=== PATIENT | female | born 2000 ===

== ENCOUNTER 2021-05-15 17:40 | Emergency (ER) | payer MEDICAID ==
[~2021-05-15 17:40] MED LIST: PYRIDOXINE 50 MG TAB PO ONE
[2021-05-15] MEDS ORDERED: diphenhydrAMINE 50 MG/ML VIAL IV STA (21:17)
[2021-05-15] MEDS ORDERED: SODIUM CHLORIDE 0.9% 1000 ML 1,000 ML IV ONE (21:17)
[2021-05-15] MEDS ORDERED: METOCLOPRAMIDE 10 MG/2 ML INJ IV STA (21:17)
[2021-05-15 21:20] VITALS: BP 129/75
[2021-05-15 22:50] LABS: Alanine Aminotransferase 6 units/L (7-56); Albumin 3.4 g/dL (3.9-5); Blood Urea Nitrogen 7 mg/dL (7-17); Hemolysis Index 0
[2021-05-15 23:04] LABS: Basophils % (Auto) 0.5 % (0.0-1.8); Eosinophils % (Auto) 0.2 % (0.0-4.3); Hematocrit 32.2 % (30.3-42.9); Hemoglobin 10.2 gm/dl (10.1-14.3); Lymphocytes # (Auto) 1.1 K/mm3 (1.2-5.4); Lymphocytes % (Auto) 14.8 % (13.4-35.0); Mean Corpuscular HGB Conc 32 % (30-34); Mean Corpuscular Volume 74 fl (79-97); Monocytes # (Auto) 0.6 K/mm3 (0.0-0.8); Monocytes % (Auto) 8.1 % (0.0-7.3); Platelet Count 247 K/mm3 (140-440); Red Blood Count 4.34 M/mm3 (3.65-5.03); Red Cell Distribution Width 18.3 % (13.2-15.2)
--- NOTE | 2021-05-15 23:04 | Emergency Department Report ---
ED N/V/D HPI - General Chief complaint: Nausea/Vomiting/Diarrhea Stated complaint: HYPEREMESIS Time Seen by Provider: 05/15/21 21:17 Source: patient Mode of arrival: Ambulatory Limitations: No Limitations - History of Present Illness Initial comments: 20-year-old female presents emerged from complaining nausea and vomiting sensation in the morning and occasional for the course of the day which worsens with eating and drinking fluids. No diarrhea no constipation, no fever, chills, sweats. No hemoptysis no hematemesis no hematochezia. No known contact with coronavirus reports she has taken a COVID test yesterday and it was negative. She reports no myalgias MD complaint: nausea, vomiting -: Gradual, days(s) (3) Time: 03:00 Description of Vomiting: food contents Associated Abdominal Pain: No Location: diffuse Radiation: none Severity: mild Consistency: constant Improves with: none Worsens with: none Associated Symptoms: denies other symptoms - Related Data Previous Rx's Medication Instructions Recorded Last Taken Type Doxylamine Succinate/Vit B6 1 each PO BID #30 05/15/21 Unknown Rx [Diclegis Dr 10-10 mg Tablet] Pyridoxine [Vitamin B-6 50MG TAB] 50 mg PO QDAY #30 tablet 05/15/21 Unknown Rx Allergies Allergy/AdvReac Type Severity Reaction Status Date / Time No Known Allergies Allergy Verified 05/15/21 21:19 ED Review of Systems ROS: Stated complaint: HYPEREMESIS Other details as noted in HPI Comment: All other systems reviewed and negative ED Past Medical Hx - Past Medical History Previous Medical History?: No - Surgical History Past Surgical History?: No - Medications Home Medications: Home Medications Medication Instructions Recorded Confirmed Last Taken Type Doxylamine Succinate/Vit B6 1 each PO BID #30 05/15/21 Unknown Rx [Diclegis Dr 10-10 mg Tablet] Pyridoxine [Vitamin B-6 50MG TAB] 50 mg PO QDAY #30 tablet 05/15/21 Unknown Rx ED Physical Exam - General Limitations: No Limitations General appearance: alert, in no apparent distress - Head Head exam: Present: atraumatic, normocephalic - Eye Eye exam: Present: normal appearance - ENT ENT exam: Present: mucous membranes moist - Neck Neck exam: Present: normal inspection - Respiratory Respiratory exam: Present: normal lung sounds bilaterally. Absent: respiratory distress - Cardiovascular Cardiovascular Exam: Present: regular rate, normal rhythm. Absent: systolic murmur, diastolic murmur, rubs, gallop - GI/Abdominal GI/Abdominal exam: Present: soft, normal bowel sounds - Extremities Exam Extremities exam: Present: normal inspection - Back Exam Back exam: Present: normal inspection - Neurological Exam Neurological exam: Present: alert, oriented X3 - Psychiatric Psychiatric exam: Present: normal affect, normal mood - Skin Skin exam: Present: warm, dry, intact, normal color. Absent: rash ED Course Vital Signs 05/15/21 05/15/21 05/15/21 19:34 21:17 21:18 Temperature 99.0 F 99.0 F Pulse Rate 105 H 87 Respiratory 15 18 Rate Blood Pressure 122/73 Blood Pressure 129/75 [Left] O2 Sat by Pulse 85 99 99 Oximetry Critical care attestation.: If time is entered above; I have spent that time in minutes in the direct care of this critically ill patient, excluding procedure time. ED Disposition Clinical Impression: Hyperemesis gravidarum Disposition: HOME / SELF CARE / HOMELESS Is pt being admited?: No Does the pt Need Aspirin: No Condition: Stable Instructions: Hyperemesis Gravidarum, Morning Sickness Prescriptions: Doxylamine Succinate/Vit B6 [Diclegis Dr 10-10 mg Tablet] 1 each PO BID #30 Pyridoxine [Vitamin B-6 50MG TAB] 50 mg PO QDAY #30 tablet Referrals: PRIMARY CARE, [Primary Care Provider] - 3-5 Days [facility] [Provider Group] - 3-5 Days
[2021-05-15 23:09] LABS: BUN/Creatinine Ratio 14
== END 2021-05-15 23:31 | disposition home or self-care (01) ==
LOC: ED 17:40
DX: O21.0 Mild hyperemesis gravidarum (principal); Z3A.00 Weeks of gestation of pregnancy not specified
CPT/HCPCS: 36415; 80053; 83690; 85025; 96361; 96374; 96375; 99283; J1200; J2765; J7030; Q0162

== ENCOUNTER 2021-06-12 13:54 | Outpatient (CLI) | payer MEDICAID ==
[2021-06-12] MEDS ORDERED: LACTATED RINGERS 500 ML IV ONE (14:09)
[2021-06-12 14:19] VITALS: BP 118/64
--- NOTE | 2021-06-12 17:22 | Ultrasound Report ---
ULTRASOUND OBSTETRIC COMPLETE INDICATION / CLINICAL INFORMATION: EFW. Clinical Gestational Age (GA) in weeks, days: 23 weeks 0 days TECHNIQUE: Transabdominal. COMPARISON: None available. FINDINGS: NUMBER: Single PRESENTATION: breech PLACENTA: anterior MATERNAL ADNEXA: No significant abnormality. AMNIOTIC FLUID VOLUME: normal AMNIOTIC FLUID INDEX (REGI) in cm (if measured): 21.0 MEASUREMENTS: - Biparietal Diameter = 5.3 cm = 22 weeks 0 days - Head Circumference = 20.6 cm = 22 weeks 5 days - Abdominal Circumference = 17.9 cm = 22 weeks 5 days - Femur Length = 3.7 cm = 21 weeks 5 days - Estimated Weight (in grams, if calculated): 494 - Heart Rate (beats per minute): 143 ADDITIONAL FINDINGS: None. AVERAGE ULTRASOUND AGE (AUA) in weeks, days = 22 weeks 2 days IMPRESSION: 1. Single intrauterine in breech presentation with AUA of 22 weeks 2 days. Estimated weight measures 494 g. 2. No significant sonographic abnormality. Signer Name: Jose Davis MD Signed: 06/12/2021 5:17 PM Workstation Name: [id number]
[2021-06-12 17:48] LABS: Bilirubin,Urine NEG (Negative); Blood,Urine LG (Negative); Color,Urine Yellow (Yellow); Mucus,Urine FEW /HPF; Protein,Urine <15 mg/dL mg/dL (Negative); Urobilinogen,Urine < 2.0 mg/dL (<2.0)
== END 2021-06-12 18:48 | disposition home or self-care (01) ==
LOC: TRG 13:54 → APU 14:03 → TRG 18:48
PROVIDERS: ATTEND Obstetrics & Gynecology
DX: O42.912 Preterm premature rupture of membranes, unspecified as to length of time between rupture and onset of labor, second trimester (principal); O32.1XX0 Maternal care for breech presentation, not applicable or unspecified; Z3A.23 23 weeks gestation of pregnancy
CPT/HCPCS: 36415; 59025; 76816; 81001; 84112; 96360

== ENCOUNTER 2021-09-26 17:04 | Outpatient (CLI) | payer MEDICAID ==
[2021-09-26 19:02] LABS: Bilirubin,Urine NEG (Negative); Blood,Urine LG (Negative); Color,Urine Red (Yellow); Mucus,Urine FEW /HPF; Urobilinogen,Urine < 2.0 mg/dL (<2.0)
[2021-09-26 19:21] VITALS: BP 99/58
--- NOTE | 2021-09-27 08:05 | Ultrasound Report ---
ULTRASOUND OBSTETRIC LIMITED ULTRASOUND BIOPHYSICAL PROFILE INDICATION / CLINICAL INFORMATION: DECREASED MOVEMENT - BPP AND FULL REGI. COMPARISON: None available. FINDINGS: BREATHING MOVEMENT = 2 GROSS BODY MOVEMENT = 2 TONE = 2 QUALITATIVE AMNIOTIC FLUID VOLUME = 2 TOTAL BIOPHYSICAL SCORE = 8/8 HEART RATE (beats per minute): 147 AMNIOTIC FLUID INDEX (cm) = 8.0 (normal = 7-24 cm) PRESENTATION: Cephalic. ADDITIONAL FINDINGS: None. IMPRESSION: 1. Biophysical Score = 8/8 Signer Name: Haider Herr MD Signed: 09/26/2021 7:19 PM Workstation Name: [id number]
== END 2021-09-26 19:24 | disposition home or self-care (01) ==
LOC: TRG 17:04 → APU 17:06 → TRG 19:24
PROVIDERS: ATTEND Obstetrics & Gynecology
DX: Z34.93 Encounter for supervision of normal pregnancy, unspecified, third trimester (principal); Z3A.38 38 weeks gestation of pregnancy
CPT/HCPCS: 76815; 76819; 81001; 87086

== ENCOUNTER 2021-10-05 20:35 | Outpatient (CLI) | payer BC, MEDICAID ==
[2021-10-05] MEDS ORDERED: ACETAMINOPHEN 500 MG TAB PO ONE (21:46)
[2021-10-05 23:12] VITALS: BP 111/56
--- NOTE | 2021-10-06 00:20 | Ultrasound Report ---
ULTRASOUND BIOPHYSICAL PROFILE INDICATION: well being. COMPARISON: 09/26/2021 FINDINGS: BREATHING MOVEMENT = 2 GROSS BODY MOVEMENT = 2 TONE = 2 QUALITATIVE AMNIOTIC FLUID VOLUME = 2 TOTAL BIOPHYSICAL SCORE = 12/09 AMNIOTIC FLUID INDEX (cm) = largest pocket 2.8 cm. PRESENTATION: Cephalic. HEART RATE (beats per minute): 136 IMPRESSION: 1. biophysical profile = 12/09 Signer Name: Abhijit Mccollum MD Signed: 10/06/2021 12:16 AM Workstation Name: [id number]
== END 2021-10-06 00:19 | disposition home or self-care (01) ==
LOC: TRG 20:35 → APU 20:36 → TRG 10-06 00:19
PROVIDERS: ATTEND Obstetrics & Gynecology
DX: O46.8X3 Other antepartum hemorrhage, third trimester (principal); Z3A.39 39 weeks gestation of pregnancy
CPT/HCPCS: 59025; 76819

== ENCOUNTER 2021-10-08 17:49 | Observation (INO) | payer MEDICAID ==
[2021-10-08 21:32] LABS: Hemoglobin 11.7 gm/dl (10.1-14.3); Mean Corpuscular HGB Conc 34 % (30-34); Mean Corpuscular Volume 80 fl (79-97); Platelet Count 196 K/mm3 (140-440); Red Blood Count 4.38 M/mm3 (3.65-5.03); Red Cell Distribution Width 16.6 % (13.2-15.2)
[2021-10-08 21:38] LABS: Bacteria,Urine 1+ /HPF (Negative); Bilirubin,Urine NEG (Negative); Blood,Urine LG (Negative); Color,Urine Yellow (Yellow); Mucus,Urine 1+ /HPF; Protein,Urine <15 mg/dL mg/dL (Negative); Urobilinogen,Urine < 2.0 mg/dL (<2.0)
[2021-10-08 21:39] LABS: Alanine Aminotransferase 10 units/L (7-56); Uric Acid 5.1 mg/dL (3.5-7.6)
[2021-10-08 21:40] LABS: Creatinine,Urine 84.4 mg/dL (0.1-20.0); Protein/Creatinine Ratio,Urine 0.23
[2021-10-08 21:43] LABS: RBC,Urine > 182.0 /HPF (0.0-6.0)
--- NOTE | 2021-10-08 21:43 | Ultrasound Report ---
ULTRASOUND ABDOMEN, LIMITED (RIGHT UPPER QUADRANT) INDICATION / CLINICAL INFORMATION: Right upper quadrant pain. COMPARISON: None available. FINDINGS: PANCREAS: Visualized portion shows no significant abnormality. LIVER: Liver measures 17.6 cm. There is normal hepatopedal flow within the portal vein. Increased ech ogenicity of the liver. GALLBLADDER: No significant abnormality. BILE DUCTS: No significant abnormality. Common bile duct measures 4 mm. FREE FLUID: None. ADDITIONAL FINDINGS: None. IMPRESSION: 1. Increased echogenicity of the liver suggesting hepatic steatosis. In the setting of this may represent acute fatty liver , correlate clinically. Signer Name: Jaylon Vargas DO Signed: 10/08/2021 9:38 PM Workstation Name: [id number]
--- NOTE | 2021-10-08 21:44 | Ultrasound Report ---
ULTRASOUND OBSTETRIC LIMITED ULTRASOUND BIOPHYSICAL PROFILE INDICATION / CLINICAL INFORMATION: well being. Clinical Gestational Age (GA) in weeks, days: 39, 6 TECHNIQUE: Transabdominal. COMPARISON: 09/26/2021 FINDINGS: BREATHING MOVEMENT = 2 GROSS BODY MOVEMENT = 2 TONE = 2 QUALITATIVE AMNIOTIC FLUID VOLUME = 2 TOTAL BIOPHYSICAL SCORE = 8/8 HEART RATE (beats per minute): 161 AMNIOTIC FLUID INDEX (cm) = 17.2 (normal = 7-24 cm) PRESENTATION: Cephalic. ADDITIONAL FINDINGS: None. IMPRESSION: 1. Biophysical Score = 8/8 Signer Name: Jaylon Vargas DO Signed: 10/08/2021 9:40 PM Workstation Name: [id number]
[2021-10-08 22:35] LABS: Alanine Aminotransferase 10 units/L (7-56); Albumin 3.4 g/dL (3.9-5); Blood Urea Nitrogen 10 mg/dL (7-17); Hemolysis Index 0
[2021-10-08] MEDS ORDERED: LACTATED RINGERS 1,000 ML ONE (22:35)
[2021-10-08 22:37] LABS: BUN/Creatinine Ratio 20
[2021-10-08] MEDS ORDERED: SIMETHICONE 80 MG CHEW TAB PO PRN (22:44)
[2021-10-08] MEDS ORDERED: MAGNESIUM HYDROXIDE (MOM) ORAL LIQD UDC PO PRN (22:44)
[2021-10-08] MEDS ORDERED: diphenhydrAMINE 25 MG CAP PO PRN (22:44)
[2021-10-08] MEDS ORDERED: ALUM-MAG HYDROXIDE-SIMETHICONE 200-200-20MG/5ML ORAL LIQD 30 ML PO PRN (22:44)
[2021-10-08] MEDS ORDERED: ONDANSETRON 4 MG/2 ML INJ IV PRN (22:44)
[2021-10-08] MEDS ORDERED: ACETAMINOPHEN 325 MG TAB PO PRN (22:44)
[2021-10-08] MEDS ORDERED: DOCUSATE SODIUM 100 MG CAP PO PRN (22:44)
[2021-10-08] MEDS ORDERED: LACTATED RINGERS 1,000 ML IV SCH (22:45)
--- NOTE | 2021-10-08 22:52 | History and Physical Report ---
History of Present Illness Date of examination: 10/08/21 Date of admission: 10/08/2021 Chief complaint: My stomach is hurting under my right rib and my baby is not moving. History of present illness: @ 39.6 weeks presents via self with c/o right-sided epigastric pain. Followed by [facility] this for short interval and choroid cyst plexus. A subsequent scan at [facility] found no INSERT CUTTER. States RUQ pain has worsened since her initial triage visit 5 days ago. Upon further questioning, also endorsing intermittent abdominal tightness that is not painful. Endorsing decreased movement. Denies vaginal bleeding, LOF, chest pain, headaches, blurred vision, and NVD. Last BM today. Adequate hydration (5 12 oz water bottles today). Tolerating regular diet. EDC Confirmation: 10/09/2021 Gestational Age: 39.6 weeks on admission Past History : 3 Term Births: 2 Premature Births: 0 Living Children: 2 Para: 2 Mult. Births: 0 Prev : 0 Aborta: 0 Elect. Ab: 0 Spont. Ab: 0 Ectopics: 0 # 1 Delivery date: 2019 Weeks Gestation: 39 labor: no Delivery type: Hours of labor: 18+ Anesthesia type: epidural Delivery location: [place] [facility] Sex: Male weight: 6-9 Comments: Vacuum delivery too numb from epidural. Had a small degree with repair. # 2 Delivery date: 2020 Weeks Gestation: 39 labor: no Delivery type: Hours of labor: 12 + Anesthesia type: epidural Delivery location: [place] [facility] Sex: Male weight: 7-14 Comments: No complications in or delivery. Past Medical History: Reviewed and updated today: negative Past Surgical History: Reviewed and updated today: negative Family History Summary: MGChapis - Has Family History of Hypertension - Entered On: 04/16/2021 Social History: Patient is single Smoking History: Patient has never smoked. 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 % Sun Exposure: rarely No Dietary Counseling Reason: pn yes Alcohol Use: yes Type: occ Drug Use: no Past Medical History Anesthesia Complications: negative Anemia: negative Autoimmune Disorder: negative Bleeding Disorder: negative Blood Transfusions: negative Breast Disease: negative Diabetes: negative Heart Disease: negative Hypertension: negative Hepatitis/Liver Disease: negative Kidney Disease/UTI: negative Neurologic/Epilepsy/Migraines: negative Phlebitis/Varicosities: negative Psychiatric: negative Pulmonary Disease/Asthma: negative Thyroid Disease: negative Hospitalizations: negative Surgery (Non-skiver hand): negative Abnormal PAP: negative BILLIE Exposure: negative Infertility: negative Uterine Anomaly: negative Uterine Surgery (not C/S): negative Other Gynecologic Problems: negative Social Hx: Patient is single Smoking History: Patient has never smoked. Infection History Hx of STD: none HIV Risk Eval: no Personal hx. of genital herpes: Yes (pt denied at time of new OB visit, however present with lesion in May 2021 and was subsequently diagnosed via serum) Partner hx. of genital herpes: Unknown Rash, Viral, or Febrile illness since last LMP? no Varicella/Chicken Pox Status: Unknown TB Risk: no Genetic History Congenital Heart Defect: Mom: no Dad: no Isadora Disease: Mom: no Dad: no Thalassemia Mom: no Dad: no Neural Tube Defect Mom: no Dad: no Down's Syndrome Mom: no Dad: no Jorge-Sachs Mom: no Dad: no Sickle Cell Disease/Trait Mom: no Dad: no Hemophilia Mom: no Dad: no Muscular Dystrophy Mom: no Dad: no Cystic Fibrosis Mom: no Dad: no Vincent Chorea Mom: no Dad: no Mental Retardation Mom: no Dad: no Fragile X Mom: no Dad: no Other Genetic/Chromosomal Disorder Mom: no Dad: no Child w/other defect Mom: no Dad: no Environmental Exposures Xray Exposure: no Medication, drug, or alcohol use since LMP: no Chemical/Other Exposure: no Exposure to Cat Liter: no Hx of Parvovirus (Fifth Disease): no Occupational Exposure to Children: none Current Allergies (reviewed today): No known allergies Past History Past Medical History: other (history of herpes, initial outbreak May 2021) Past Surgical History: no surgical history Family/Genetic History: hypertension Social history: single - Obstetrical History Expected Date of Delivery: 10/09/21 Actual Gestation: 40 Week(s) 0 Day(s) : 3 Para: 2 Hx # Term Pregnancies: 2 Number of Pregnancies: 0 Spontaneous Abortions: 0 Induced : 0 Number of Living Children: 2 Medications and Allergies Allergies Allergy/AdvReac Type Severity Reaction Status Date / Time No Known Allergies Allergy Verified 05/15/21 21:19 Home Medications Medication Instructions Recorded Confirmed Last Taken Type Doxylamine Succinate/Vit B6 1 each PO BID #30 05/15/21 Unknown Rx [Diclegis Dr 10-10 mg Tablet] Pyridoxine [Vitamin B-6 50MG TAB] 50 mg PO QDAY #30 tablet 05/15/21 Unknown Rx Nitrofurantoin [place]/M-Cryst 100 mg PO Q12HR #10 capsule 06/12/21 Unknown Rx [Macrobid CAP] Active Meds: Active Medications Acetaminophen (Acetaminophen 325 Mg Tab) 650 mg PO Q4H PRN PRN Reason: Pain MILD(1-3)/Fever >100.5/CLEMENS Al Hydrox/Mg Hydrox/Simethicone (Alum-Mag Hydroxide-Simethicone [phone]/5ml Oral Liqd 30 Ml) 30 ml PO Q6H PRN PRN Reason: Indigestion Diphenhydramine HCl (Diphenhydramine 25 Mg Cap) 25 mg PO Q6H PRN PRN Reason: Itching Docusate Sodium (Docusate Sodium 100 Mg Cap) 100 mg PO Q12H PRN PRN Reason: Constipation Lactated Ringer's (Lactated Ringers) 1,000 mls @ 125 mls/hr IV DIRECT CLAUDIA Magnesium Hydroxide (Magnesium Hydroxide (Mom) Oral Liqd Udc) 30 ml PO QHS PRN PRN Reason: Laxative Effect Multivitamins/Iron/Calcium ( Cfb79-Pl Fumarate-Folic Acid Vit Tab) 1 each PO QDAY CLAUDIA Ondansetron HCl (Ondansetron 4 Mg/2 Ml Inj) 4 mg IV Q6H PRN PRN Reason: Nausea And Vomiting Simethicone (Simethicone 80 Mg Chew Tab) 80 mg PO Q6H PRN PRN Reason: Gas pain Review of Systems Constitutional: no chronic headaches, no chronic pain Eyes: no blurred vision Cardiovascular: no chest pain, no orthopnea, no palpitations, no edema, no lightheadedness Breasts: deferred Gastrointestinal: abdominal pain, no nausea, no vomiting, no diarrhea, no constipation, no change in bowel habits, no hematochezia, no heartburn, no indigestion, no excessive gas, no jaundice, no early satiety Genitourinary: no vaginal bleeding, no vaginal discharge, no leakage of fluid, no dysuria, no genital sores Neurological: no headaches, no migraines, no double vision, no loss of vision Endocrine: no polyuria, no excessive sweating, no increase in ring/shoe/hat size Hematologic/Lymphatic: no easy bruising, no easy bleeding - Vital Signs Vital signs: Vital Signs Pulse BP 101 H 120/68 10/08/21 18:26 10/08/21 18:26 Temp Pulse Resp BP Pulse Ox 98.3 F 89 118/62 98 10/08/21 22:38 10/08/21 22:39 10/08/21 22:39 10/08/21 20:32 Pt is alert oriented to person, place, time, and situation. Endorses right upper quadrant pain, but no rebound tenderness on palpation. Palpated patient's abdomen for 3 minutes in the area of pain and this did not elicit a response from the patient. She denies nausea, vomiting, headache, blurred vision, spots before her eyes, chest pain, shortness of breath. - Physical Exam Breasts: Positive: deferred Cardiovascular: Regular rate, Normal S1, Normal S2 Lungs: Positive: Clear to auscultation, Normal air movement Abdomen: Positive: normal appearance, soft, normal bowel sounds. Negative: tenderness, guarding Genitourinary (Female): Positive: normal external genitalia, normal perenium, other (No lesions seen on exam.) Vulva: both: normal Vagina: Positive: other (+ white discharge consistent with yeast) Uterus: Positive: normal size Extremities: Positive: normal Deep Tendon Reflex Grade: Normal +2 - Obstetrical FHR: category 1, category 2 ( tachycardia noted at times during triage admission. ) Uterine Contraction Monitor Mode: External Cervical Dilatation: 3 Cervical Effacement Percentage: 50 station: -3 Uterine Contraction Frequency (min): irritability Uterine Contraction Duration: 30-40 seconds Uterine Contraction Pattern: Regular Uterine Tone Measurement Phase: Resting Uterine Contraction Intensity: Mild Results Result Diagrams: 10/08/21 20:45 10/08/21 20:45 Abnormal lab results 10/08/21 10/08/21 10/08/21 Range/Units 20:45 20:45 20:45 MCH 27 L (28-32) pg RDW 16.6 H (13.2-15.2) % Carbon Dioxide (22-30) mmol/L Creatinine 0.4 L (0.6-1.2) mg/dL Alkaline Phosphatase (35-129) units/L Albumin (3.9-5) g/dL U Epithel Cells (Auto) 24.0 H (0-13.0) /HPF Urine Creatinine (0.1-20.0) mg/dL Urine Total Protein (5-11.8) mg/dL 10/08/21 10/08/21 Range/Units 20:45 20:45 MCH (28-32) pg RDW (13.2-15.2) % Carbon Dioxide 20 L (22-30) mmol/L Creatinine 0.5 L (0.6-1.2) mg/dL Alkaline Phosphatase 200 H (35-129) units/L Albumin 3.4 L (3.9-5) g/dL U Epithel Cells (Auto) (0-13.0) /HPF Urine Creatinine 84.4 H (0.1-20.0) mg/dL Urine Total Protein 19 H (5-11.8) mg/dL GBS NEGATIVE HBsAg Screen Negative Negative *1 RPR Non Reactive Non Reactive *2 Rubella Antibodies, IgG 3.56 index Immune >0.99 *3 Non-immune <0.90 Equivocal 0.90 - 0.99 Immune >0.99 ABO Grouping O *4 Rh Factor Positive *5 Please note: Prior records for this patient's ABO / Rh type are not available for additional verification. Tests: (3) HB Solu + Rflx Fra ([id number]) Hemoglobin (Hgb) Solubility Negative Negative *55 Tests: (4) HIV Ab/p24 Ag with Reflex ([id number]) HIV Ab/p24 Ag Screen Non Reactive Non Reactive *56 HIV Negative HIV-1/HIV-2 antibodies and HIV-1 p24 antigen were NOT detected. There is no laboratory evidence of HIV infection. Tests: (5) HCV Antibody reflex to NORBERT ([id number]) HCV Ab 0.1 s/co ratio 0.0-0.9 *57 Tests: (6) Interpretation: ([id number]) ! Interpretation: SPRCS *58 Negative Not infected with HCV, unless recent infection is suspected or other evidence exists to indicate HCV infection. Ultrasound: report reviewed Assessment and Plan A: 21yo @39.6 weeks SVE: /-3, posterior, soft possible latent labor US: "slight enlargement of liver, consistent with acute liver of , correlate with clinical findings" - Not consistent with subjective exam findings excluding chief complaint. U/S results also not consistent with objective physical exam findings or lab results Lab results WNL, including billirubin, coagulation factors, liver enzymes and platelets BPP: 12/09 Cat 1 / Cat 2 tracing [intermittent tachycardia, moderate variability, 2 decelerations noted >4 hrs) VSS Pt no longer reporting abdominal pain, initially TOCO irritable upon arrival, spaced to irregular contractions Decreased movement P: Admit to observation IVF bolus 1 time PRN order for IV analgesia Repeat labs @0700 on 10/09/21 Repeat SVE Pending labs results and SVE, admit for augmentation of labor Dr Marie consulted and aware of plan of care. - Patient Problems (1) with 39 completed weeks gestation Current Visit: Yes Status: Acute (2) Decreased movement affecting , antepartum Current Visit: Yes Status: Acute (3) HSV-2 infection Current Visit: Yes Status: Acute (4) Right upper quadrant abdominal pain affecting Current Visit: Yes Status: Acute
[2021-10-08 23:23] LABS: INR 0.83 (0.87-1.13)
[2021-10-08 23:24] LABS: Partial Thromboplastin Time 27.8 Sec. (24.2-36.6)
--- NOTE | 2021-10-09 07:19 | Progress Note ---
Assessment and Plan A: 21 y.o. @ 40 wks, hx of right upper quadrant pain, decreased movement. Cervical exam unchanged since observation admission. 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 P: Continue with observation. Continue to monitor maternal and status. Continue to monitor for lesions. Valtrex 1 gm ordered PO daily. Awaiting repeat labs this AM. - If WNL, pt aware that she will be discharged home with close follow up in office. - Patient Problems (1) with 39 completed weeks gestation Current Visit: Yes Status: Acute (2) Decreased movement affecting , antepartum Current Visit: Yes Status: Acute (3) HSV-2 infection Current Visit: Yes Status: Acute (4) Right upper quadrant abdominal pain affecting Current Visit: Yes Status: Acute Subjective - Subjective Date of service: 10/09/21 Principal diagnosis: IUP @ 40 wks, decreased movement, right upper quadrant pain Interval history: Pt continues to deny pain at this time. Spoke with patient regarding plan of care. If labs are normal this AM and she does not have any s/sx of active labor she will be discharged home with close follow up. Pt is aware and voiced understanding. All questions and concerns addressed. Patient reports: movement normal, no new complaints, no loss of fluid, no vaginal bleeding, no contractions Objective - Vital Signs Vital Signs: Vital Signs - 12hr 10/08/21 10/08/21 10/08/21 19:17 19:22 19:27 Temperature Pulse Rate 107 H 104 H 86 Blood Pressure O2 Sat by Pulse 97 97 97 Oximetry 10/08/21 10/08/21 10/08/21 19:32 19:37 19:42 Temperature Pulse Rate 91 H 90 106 H Blood Pressure O2 Sat by Pulse 97 97 95 Oximetry 10/08/21 10/08/21 10/08/21 19:47 19:52 19:57 Temperature Pulse Rate 94 H 100 H 100 H Blood Pressure O2 Sat by Pulse 97 97 97 Oximetry 10/08/21 10/08/21 10/08/21 20:02 20:07 20:12 Temperature Pulse Rate 99 H 109 H 104 H Blood Pressure O2 Sat by Pulse 97 97 97 Oximetry 10/08/21 10/08/21 10/08/21 20:17 20:22 20:26 Temperature Pulse Rate 110 H 106 H 111 H Blood Pressure O2 Sat by Pulse 97 98 93 Oximetry 10/08/21 10/08/21 10/08/21 20:27 20:32 22:06 Temperature Pulse Rate 97 H 87 92 H Blood Pressure 129/85 O2 Sat by Pulse 98 98 Oximetry 10/08/21 10/08/21 10/09/21 22:38 22:39 01:27 Temperature 98.3 F Pulse Rate 89 90 Blood Pressure 118/62 O2 Sat by Pulse 96 Oximetry 10/09/21 10/09/21 10/09/21 01:32 01:37 01:42 Temperature Pulse Rate 80 86 77 Blood Pressure O2 Sat by Pulse 98 96 96 Oximetry 10/09/21 10/09/21 10/09/21 01:47 01:52 01:57 Temperature Pulse Rate 82 86 91 H Blood Pressure O2 Sat by Pulse 96 97 96 Oximetry 10/09/21 10/09/21 10/09/21 02:02 02:07 02:12 Temperature Pulse Rate 102 H 86 80 Blood Pressure O2 Sat by Pulse 96 97 97 Oximetry 10/09/21 10/09/21 10/09/21 02:17 02:22 02:27 Temperature Pulse Rate 90 90 83 Blood Pressure O2 Sat by Pulse 98 97 96 Oximetry 10/09/21 10/09/21 10/09/21 02:32 02:37 02:42 Temperature Pulse Rate 84 82 85 Blood Pressure O2 Sat by Pulse 97 97 97 Oximetry 10/09/21 10/09/21 10/09/21 02:47 02:59 03:04 Temperature Pulse Rate 83 89 90 Blood Pressure O2 Sat by Pulse 97 96 97 Oximetry 10/09/21 10/09/21 10/09/21 03:09 03:14 03:19 Temperature Pulse Rate 77 75 78 Blood Pressure O2 Sat by Pulse 97 94 95 Oximetry 10/09/21 10/09/21 10/09/21 03:24 03:29 03:33 Temperature Pulse Rate 82 79 86 Blood Pressure 104/53 O2 Sat by Pulse 97 97 Oximetry 10/09/21 10/09/21 10/09/21 03:34 03:39 03:44 Temperature Pulse Rate 82 81 71 Blood Pressure O2 Sat by Pulse 96 95 94 Oximetry 10/09/21 10/09/21 10/09/21 03:49 03:51 03:54 Temperature Pulse Rate 81 79 77 Blood Pressure O2 Sat by Pulse 95 94 94 Oximetry 10/09/21 10/09/21 10/09/21 03:57 03:59 04:03 Temperature Pulse Rate 81 81 82 Blood Pressure O2 Sat by Pulse 94 95 94 Oximetry 10/09/21 10/09/21 10/09/21 04:04 04:08 04:09 Temperature Pulse Rate 78 82 82 Blood Pressure O2 Sat by Pulse 95 94 95 Oximetry 10/09/21 10/09/21 10/09/21 04:14 04:19 04:21 Temperature Pulse Rate 80 83 79 Blood Pressure O2 Sat by Pulse 95 95 94 Oximetry 10/09/21 10/09/21 10/09/21 04:24 04:29 04:34 Temperature Pulse Rate 98 H 86 74 Blood Pressure O2 Sat by Pulse 96 97 98 Oximetry 10/09/21 10/09/21 10/09/21 04:39 04:44 04:49 Temperature Pulse Rate 80 79 86 Blood Pressure O2 Sat by Pulse 97 98 97 Oximetry 10/09/21 10/09/21 10/09/21 04:54 04:59 05:04 Temperature Pulse Rate 84 74 77 Blood Pressure O2 Sat by Pulse 97 98 97 Oximetry 10/09/21 10/09/21 10/09/21 05:09 05:14 05:19 Temperature Pulse Rate 78 75 78 Blood Pressure O2 Sat by Pulse 97 98 97 Oximetry 10/09/21 10/09/21 10/09/21 05:24 05:29 05:34 Temperature Pulse Rate 81 78 83 Blood Pressure O2 Sat by Pulse 97 99 97 Oximetry 10/09/21 10/09/21 10/09/21 05:39 05:40 05:44 Temperature Pulse Rate 91 H 100 H 86 Blood Pressure O2 Sat by Pulse 98 86 96 Oximetry 10/09/21 10/09/21 10/09/21 05:49 05:54 05:59 Temperature Pulse Rate 96 H 81 80 Blood Pressure O2 Sat by Pulse 98 96 98 Oximetry 10/09/21 10/09/21 10/09/21 06:04 06:09 06:14 Temperature 98.1 F Pulse Rate 86 74 Blood Pressure O2 Sat by Pulse 96 97 Oximetry 10/09/21 10/09/21 10/09/21 06:18 06:23 06:28 Temperature Pulse Rate 91 H 86 86 Blood Pressure O2 Sat by Pulse 93 98 97 Oximetry 10/09/21 10/09/21 10/09/21 06:39 06:44 06:49 Temperature Pulse Rate 80 81 Blood Pressure O2 Sat by Pulse 100 96 97 Oximetry 10/09/21 10/09/21 10/09/21 06:54 06:59 07:04 Temperature Pulse Rate 88 84 82 Blood Pressure O2 Sat by Pulse 97 98 98 Oximetry 10/09/21 07:09 Temperature Pulse Rate 86 Blood Pressure O2 Sat by Pulse 98 Oximetry - Exam Narrative Exam: Pt continue to deny n/v, vaginal bleeding, LOF, ctxs, CLEMENS, blurred vision, spots before her eyes, chest pain, shortness of breath, and upper abdominal pain. She continues to be alert and oriented to person, place, time, and situation. Cardiovascular: Regular rate Lungs: Normal air movement Abdomen: Present: normal appearance, soft Vulva: both: normal FHR: category 1 Uterine Contraction Monitor Mode: External Cervical Dilatation: 3.5 (Intact, same exam throughout triage stay. Unchanged) Cervical Effacement Percentage: 50 station: -3 Uterine Contraction Pattern: Absent Extremities: normal Deep Tendon Reflex Grade: Normal +2 - Labs Labs: Abnormal Labs 10/08/21 10/08/21 10/08/21 20:45 20:45 20:45 MCH 27 L RDW 16.6 H INR Carbon Dioxide Creatinine 0.4 L Alkaline Phosphatase Albumin U Epithel Cells (Auto) 24.0 H Urine Creatinine Urine Total Protein 10/08/21 10/08/21 10/08/21 20:45 20:45 22:45 MCH RDW INR 0.83 L Carbon Dioxide 20 L Creatinine 0.5 L Alkaline Phosphatase 200 H Albumin 3.4 L U Epithel Cells (Auto) Urine Creatinine 84.4 H Urine Total Protein 19 H Laboratory Results - last 24 hr 10/08/21 10/08/21 10/08/21 20:45 20:45 20:45 WBC 9.1 RBC 4.38 Hgb 11.7 Hct 35.0 MCV 80 MCH 27 L MCHC 34 RDW 16.6 H Plt Count 196 PT INR APTT Sodium Potassium Chloride Carbon Dioxide Anion Gap BUN Creatinine 0.4 L Estimated GFR > 60 BUN/Creatinine Ratio Glucose Uric Acid 5.1 Calcium Total Bilirubin AST 13 ALT 10 Alkaline Phosphatase Lactate Dehydrogenase 161 Total Protein Albumin Albumin/Globulin Ratio Urine Color Yellow Urine Turbidity Slightly-cloudy Urine pH 5.0 Ur Specific [place] 1.015 Urine Protein <15 mg/dl Urine Glucose (UA) Neg Urine Ketones Neg Urine Blood Lg Urine Nitrite Neg Urine Bilirubin Neg Urine Urobilinogen < 2.0 Ur Leukocyte Esterase Tr Urine WBC (Auto) 4.0 Urine RBC (Auto) > 182.0 U Epithel Cells (Auto) 24.0 H Urine Bacteria (Auto) 1+ Urine Mucus 1+ Urine Creatinine Protein/Creatinin Ratio Urine Total Protein Blood Type Antibody Screen 10/08/21 10/08/21 10/08/21 20:45 20:45 20:45 WBC RBC Hgb Hct MCV MCH MCHC RDW Plt Count PT INR APTT Sodium 137 Potassium 3.9 Chloride 105.3 Carbon Dioxide 20 L Anion Gap 16 BUN 10 Creatinine 0.5 L Estimated GFR > 60 BUN/Creatinine Ratio 20 Glucose 79 Uric Acid Calcium 9.0 Total Bilirubin 0.40 AST 13 ALT 10 Alkaline Phosphatase 200 H Lactate Dehydrogenase Total Protein 7.2 Albumin 3.4 L Albumin/Globulin Ratio 0.9 Urine Color Urine Turbidity Urine pH Ur Specific [place] Urine Protein Urine Glucose (UA) Urine Ketones Urine Blood Urine Nitrite Urine Bilirubin Urine Urobilinogen Ur Leukocyte Esterase Urine WBC (Auto) Urine RBC (Auto) U Epithel Cells (Auto) Urine Bacteria (Auto) Urine Mucus Urine Creatinine 84.4 H Protein/Creatinin Ratio 0.23 Urine Total Protein 19 H Blood Type O POSITIVE Antibody Screen Negative 10/08/21 22:45 WBC RBC Hgb Hct MCV MCH MCHC RDW Plt Count PT 12.3 INR 0.83 L APTT 27.8 Sodium Potassium Chloride Carbon Dioxide Anion Gap BUN Creatinine Estimated GFR BUN/Creatinine Ratio Glucose Uric Acid Calcium Total Bilirubin AST ALT Alkaline Phosphatase Lactate Dehydrogenase Total Protein Albumin Albumin/Globulin Ratio Urine Color Urine Turbidity Urine pH Ur Specific [place] Urine Protein Urine Glucose (UA) Urine Ketones Urine Blood Urine Nitrite Urine Bilirubin Urine Urobilinogen Ur Leukocyte Esterase Urine WBC (Auto) Urine RBC (Auto) U Epithel Cells (Auto) Urine Bacteria (Auto) Urine Mucus Urine Creatinine Protein/Creatinin Ratio Urine Total Protein Blood Type Antibody Screen
[2021-10-09 07:20] VITALS: BP 102/66
[2021-10-09 09:35] LABS: Alanine Aminotransferase 9 units/L (7-56); Albumin 3.1 g/dL (3.9-5); Basophils % (Auto) 0.5 % (0.0-1.8); Blood Urea Nitrogen 7 mg/dL (7-17); Calcium 8.6 mg/dL (8.4-10.2); Eosinophils # (Auto) 0.1 K/mm3 (0.0-0.4); Eosinophils % (Auto) 0.7 % (0.0-4.3); Hematocrit 32.6 % (30.3-42.9); Hemolysis Index 11; Lymphocytes # (Auto) 2.6 K/mm3 (1.2-5.4); Lymphocytes % (Auto) 27.3 % (13.4-35.0); Mean Corpuscular HGB Conc 34 % (30-34); Mean Corpuscular Volume 79 fl (79-97); Monocytes # (Auto) 0.5 K/mm3 (0.0-0.8); Monocytes % (Auto) 5.9 % (0.0-7.3); Platelet Count 185 K/mm3 (140-440); Red Blood Count 4.11 M/mm3 (3.65-5.03)
[2021-10-09 09:36] LABS: BUN/Creatinine Ratio 14
[2021-10-09] MEDS ORDERED: valACYclovir 500 MG TAB PO SCH (10:00)
[2021-10-09] MEDS ORDERED: PRENATAL VIT27-FE FUMARATE-FOLIC ACID VIT TAB PO SCH (10:00)
[2021-10-09 10:14] LABS: INR 0.87 (0.87-1.13)
[2021-10-09 10:16] LABS: Partial Thromboplastin Time 28.6 Sec. (24.2-36.6)
--- NOTE | 2021-10-09 13:07 | Discharge Summary ---
Providers - Providers Date of Admission: 10/08/21 22:44 Date of discharge: 10/09/21 Attending physician: MASHA Sears s/w pt via telephone. Orders placed for discharge home. Discharge precautions reviewed with pt and follow up visit encouraged as scheduled. Pt verbalizes understanding. Primary care physician: MASHA TOWNSEND Hospitalization Reason for admission: observation, IUP at term Discharge diagnosis: other (IUP at term) Condition at discharge: Good Disposition: 01 HOME / SELF CARE / HOMELESS Plan - Provider Discharge Summary Activity: routine Diet: routine Instructions: routine Additional instructions: [] Smoking cessation referral if applicable(refer to patient education folder for contact #) [] Refer to [facility] Booklet Call your doctor immediately for: * Fever > 100.5 * vaginal bleeding * Severe persistent headache * Shortness of breath * Reddened, hot, painful area to leg or breast * leaking vaginal fluid suspicious of broken bag of coe * contractions more than 6 times per hour * decreased movements less than 10 in two hours Please attend your scheduled visit tomorrow morning and call [phone] if you have any questions or concerns. Thank you! - Follow up plan Follow up: MASHA TOWNSEND MD [Primary Care Provider] - 7 Days
== END 2021-10-09 13:15 | disposition home or self-care (01) ==
LOC: TRG 17:49 → APU 17:52 → TRG 22:44 → APU 22:44 → LD 10-09 07:57
PROVIDERS: ADMIT Obstetrics & Gynecology; ATTEND Obstetrics & Gynecology
DX: O09.93 Supervision of high risk pregnancy, unspecified, third trimester (principal); O26.893 Other specified pregnancy related conditions, third trimester; R10.13 Epigastric pain; Z3A.39 39 weeks gestation of pregnancy
CPT/HCPCS: 36415; 59025; 76705; 76815; 76819; 80053; 81001; 82565; 82570; 83615; 84156; 84450; 84460; 84550; 85025; 85027; 85610; 85730; 86850; 86900; 86901; G0378; J7120; U0003

== ENCOUNTER 2021-10-11 07:42 | Inpatient (IN) | payer MEDICAID ==
[2021-10-11] MEDS ORDERED: ACETAMINOPHEN 325 MG TAB PO PRN ×2 (08:18→23:19)
[2021-10-11] MEDS ORDERED: METHYLERGONOVINE MALEATE 0.2 MG/ML VIAL IM PRN (08:18)
[2021-10-11] MEDS ORDERED: miSOPROStol 200 MCG TAB PR PRN (08:18)
[2021-10-11] MEDS ORDERED: OXYTOCIN 10 UNIT/1 ML INJ IM PRN (08:18)
[2021-10-11] MEDS ORDERED: CARBOPROST TROMETHAMINE 250 MCG/1 ML INJ IM PRN (08:18)
[2021-10-11] MEDS ORDERED: NALOXONE 0.4 MG/1 ML INJ IV PRN ×2 (08:18→19:14)
[2021-10-11] MEDS ORDERED: ePHEDrine SULFATE 50 MG/1 ML INJ IV PRN ×2 (08:18→19:14)
[2021-10-11] MEDS ORDERED: fentaNYL 100 MCG/2 ML INJ IV PRN (08:18)
[2021-10-11] MEDS ORDERED: BUTORPHANOL 2 MG/1 ML INJ IV PRN (08:18)
[2021-10-11] MEDS ORDERED: LIDOCAINE (2%) 20 MG/1 ML VIAL 20 ML MDV INFILTRATI ONE (08:18)
[2021-10-11] MEDS ORDERED: TERBUTALINE 1 MG/1 ML INJ SUB-Q PRN (08:18)
[2021-10-11] MEDS ORDERED: LOPERAMIDE 2 MG CAP PO PRN (08:18)
[2021-10-11] MEDS ORDERED: MINERAL OIL 30 ML ORAL LIQD PO PRN (08:18)
[2021-10-11] MEDS ORDERED: PROMETHAZINE 25 MG TAB PO PRN ×2 (08:18→23:19)
[2021-10-11] MEDS ORDERED: ONDANSETRON 4 MG/2 ML INJ IV PRN ×2 (08:18→23:19)
--- NOTE | 2021-10-11 08:24 | History and Physical Report ---
History of Present Illness Date of examination: 10/11/21 Date of admission: 10/11/2021 Chief complaint: My baby is not moving and I'm losing my mucus plug. I'm still having pain under my right rib. History of present illness: Pt is a 21 y.o. @ 40.2 wks with c/o decreased movement, loss of mucus plug, and right upper quadrant pain. The last week of this has been complicated by right-sided upper quadrant abdominal pain and persistent decreased movement. States RUQ pain has worsened and continued since her initial triage visit and [facility] admission. She has had multiple BPP's within week with the last one on 10/08 that resulted as 12/09. Also of note had a abdominal u/s that showed possible fatty liver of . This diagnosis was ruled out d/t patient not having any other s/sx of this condition, normal labs, and assessment. She was being followed by [facility] this for short interval and choroid plexus cyst. 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 COVID negative on 10/09/21. EDC Confirmation: 10/09/2021 Gestational Age: 40.2 weeks on admission Past History : 3 Term Births: 2 Premature Births: 0 Living Children: 2 Para: 2 Mult. Births: 0 Prev : 0 Aborta: 0 Elect. Ab: 0 Spont. Ab: 0 Ectopics: 0 # 1 Delivery date: 2019 Weeks Gestation: 39 labor: no Delivery type: Hours of labor: 18+ Anesthesia type: epidural Delivery location: [place] Infant Sex: Male weight: 6-9 Comments: Vaccum delivery too numb from epidural. Had a small degree with repair. # 2 Delivery date: 2020 Weeks Gestation: 39 labor: no Delivery type: Hours of labor: 12 + Anesthesia type: epidural Delivery location: [place] Sex: Male weight: 7-14 Comments: No complications in or delivery. Past Medical History: Reviewed and updated today: Negative Past Medical History Past Surgical History: Reviewed and updated today: negative Family History Summary: MIREYA - Has Family History of Hypertension - Entered On: 04/16/2021 Social History: Patient is single Smoking History: Patient has never smoked. 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 % Sun Exposure: rarely No Dietary Counseling Reason: pn yes Alcohol Use: yes Type: occ Drug Use: no Past Medical History Anesthesia Complications: negative Anemia: negative Autoimmune Disorder: negative Bleeding Disorder: negative Blood Transfusions: negative Breast Disease: negative Diabetes: negative Heart Disease: negative Hypertension: negative Hepatitis/Liver Disease: negative Kidney Disease/UTI: negative Neurologic/Epilepsy/Migraines: negative Phlebitis/Varicosities: negative Psychiatric: negative Pulmonary Disease/Asthma: negative Thyroid Disease: negative Hospitalizations: negative Surgery (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 Infection History Hx of STD: none HIV Risk Eval: no Personal hx. of genital herpes: no Partner hx. of genital herpes: no Rash, Viral, or Febrile illness since last LMP? no Varicella/Chicken Pox Status: Unknown TB Risk: no Genetic History Congenital Heart Defect: Mom: no Dad: no Isadora Disease: Mom: no Dad: no Thalassemia Mom: no Dad: no Neural Tube Defect Mom: no Dad: no Down's Syndrome Mom: no Dad: no Jorge-Sachs Mom: no Dad: no Sickle Cell Disease/Trait Mom: no Dad: no Hemophilia Mom: no Dad: no Muscular Dystrophy Mom: no Dad: no Cystic Fibrosis Mom: no Dad: no Crockett Chorea Mom: no Dad: no Mental Retardation Mom: no Dad: no Fragile X Mom: no Dad: no Other Genetic/Chromosomal Disorder Mom: no Dad: no Child w/other defect Mom: no Dad: no Enviromental Exposures Xray Exposure: no Medication, drug, or alcohol use since LMP: no Chemical/Other Exposure: no Exposure to Cat Liter: no Hx of Parvovirus (Fifth Disease): no Occupational Exposure to Children: none Active Medications (reviewed today): PNV () Current Allergies (reviewed today): No known allergies Laboratory Results Routine Urinalysis Leukocytes: trace Nitrite: negative Urobilinogen: negative Protein: 1+ Blood: trace Ketone: large (80) Bilirubin: negative Glucose: negative Urine HCG: positive Review of Systems General Denies fever, chills, sweats, anorexia, fatigue, weakness, malaise, weight loss and sleep disorder. Past History Past Medical History: no pertinent history Past Surgical History: no surgical history Family/Genetic History: hypertension Social history: no significant social history - Obstetrical History Expected Date of Delivery: 10/09/21 Actual Gestation: 40 Week(s) 2 Day(s) : 3 Para: 2 Hx # Term Pregnancies: 2 Number of Pregnancies: 0 Spontaneous Abortions: 0 Induced : 0 Number of Living Children: 2 Medications and Allergies Allergies Allergy/AdvReac Type Severity Reaction Status Date / Time No Known Allergies Allergy Verified 05/15/21 21:19 Home Medications Medication Instructions Recorded Confirmed Last Taken Type Doxylamine Succinate/Vit B6 1 each PO BID #30 05/15/21 Unknown Rx [Diclegis Dr 10-10 mg Tablet] Pyridoxine [Vitamin B-6 50MG TAB] 50 mg PO QDAY #30 tablet 05/15/21 Unknown Rx Nitrofurantoin [place]/M-Cryst 100 mg PO Q12HR #10 capsule 06/12/21 Unknown Rx [Macrobid CAP] Review of Systems All systems: negative - Physical Exam Cardiovascular: Regular rate Lungs: Positive: Normal air movement Abdomen: Positive: normal appearance, soft Genitourinary (Female): Positive: normal external genitalia (No lesions seen on exam. ), normal perenium, other (No lesions seen.) Vulva: both: normal Vagina: Positive: discharge (Large amount of mucus seen at introitus.) Uterus: Positive: enlarged (Normal for 40 + wk gestation) Extremities: Positive: normal Deep Tendon Reflex Grade: Normal +2 - Obstetrical FHR: category 1 Uterine Contraction Monitor Mode: External Cervical Dilatation: 5 (BBOW) Cervical Effacement Percentage: 70 station: -2 Uterine Contraction Pattern: Irregular Uterine Tone Measurement Phase: Resting Uterine Contraction Intensity: Mild Results Result Diagrams: 10/11/21 09:40 All other labs normal. GBS NEGATIVE HBsAg Screen Negative Negative *1 RPR Non Reactive Non Reactive *2 Rubella Antibodies, IgG 3.56 index Immune >0.99 *3 Non-immune <0.90 Equivocal 0.90 - 0.99 Immune >0.99 ABO Grouping O *4 Rh Factor Positive *5 Please note: Prior records for this patient's ABO / Rh type are not available for additional verification. Antibody Screen Negative Negative *6 Tests: (3) HB Solu + Rflx Fra ([id number]) Hemoglobin (Hgb) Solubility Negative Negative *55 Tests: (4) HIV Ab/p24 Ag with Reflex ([id number]) HIV Ab/p24 Ag Screen Non Reactive Non Reactive *56 HIV Negative HIV-1/HIV-2 antibodies and HIV-1 p24 antigen were NOT detected. There is no laboratory evidence of HIV infection. Tests: (5) HCV Antibody reflex to NORBERT ([id number]) HCV Ab 0.1 s/co ratio 0.0-0.9 *57 Tests: (6) Interpretation: ([id number]) ! Interpretation: SPRCS *58 Negative Not infected with HCV, unless recent infection is suspected or other evidence exists to indicate HCV infection. Assessment and Plan A: 21 y.o. @ 40.2 weeks, labor, HSV 2+, right upper quadrant pain, decreased movement. - Patient Problems (1) Postmaturity , 40-42 weeks gestation Current Visit: Yes Status: Acute Plan to address problem: Admit to labor and delivery. Initiate IV. Draw admission labs. Augmentation: Pitocin per protocol. Epidural for pain management when pt ask. Anticipate . (2) Decreased movement affecting , antepartum Current Visit: No Status: Acute Plan to address problem: Monitor status through EFM. (3) HSV-2 infection Current Visit: No Status: Acute Plan to address problem: No lesions seen on today's exam. Valtrex ordered. (4) Right upper quadrant abdominal pain affecting Current Visit: No Status: Acute Plan to address problem: All Pre Eclampsia lab work has been normal so far. Continue to monitor.
[2021-10-11] MEDS ORDERED: LACTATED RINGERS 1,000 ML IV SCH (08:30)
[2021-10-11] MEDS ORDERED: OXYTOCIN DRIP 30 UNITS/500 ML BAG IV SCH ×3 (09:00→23:45)
[2021-10-11 10:18] LABS: Hematocrit 33.7 % (30.3-42.9); Hemoglobin 11.1 gm/dl (10.1-14.3); Mean Corpuscular HGB Conc 33 % (30-34); Mean Corpuscular Volume 80 fl (79-97); Platelet Count 183 K/mm3 (140-440); Red Blood Count 4.21 M/mm3 (3.65-5.03); Red Cell Distribution Width 16.7 % (13.2-15.2)
--- NOTE | 2021-10-11 18:15 | Progress Note ---
Assessment and Plan A: 21 y.o. @ 40.2 weeks, labor, HSV 2+, right upper quadrant pain, decreased movement. - Patient Problems (1) Postmaturity , 40-42 weeks gestation Current Visit: Yes Status: Acute Plan to address problem: Continue with augmentation of labor. - Pitocin currently at 8 mu. Currently does not want epidural. - Will want epidural when more active. AROM with next exam. Continue to monitor status through EFM. Anticipate . (2) Decreased movement affecting , antepartum Current Visit: No Status: Acute (3) HSV-2 infection Current Visit: No Status: Acute (4) Right upper quadrant abdominal pain affecting Current Visit: No Status: Acute Subjective - Subjective Date of service: 10/11/21 Principal diagnosis: IUP 40.2 weeks, labor, HSV 2+, right upper quadrant pain, DFM Interval history: Discussed with patient plan: will continue to increase Pitocin and when able AROM. Pt agrees to this plan. Patient reports: loss of fluid (States possible loss of fluids around 2pm. No evidence of SROM seen. ), movement normal Objective - Vital Signs Vital Signs: Vital Signs - 12hr 10/11/21 10/11/21 10/11/21 08:21 08:26 08:31 Temperature Pulse Rate 93 H 90 86 Respiratory Rate Blood Pressure 118/76 Blood Pressure [Right] O2 Sat by Pulse 98 99 99 Oximetry O2 Sat by Pulse Oximetry [ Bilateral] 10/11/21 10/11/21 10/11/21 08:36 08:41 08:46 Temperature Pulse Rate 96 H 95 H 82 Respiratory Rate Blood Pressure Blood Pressure [Right] O2 Sat by Pulse 99 99 99 Oximetry O2 Sat by Pulse Oximetry [ Bilateral] 10/11/21 10/11/21 10/11/21 08:51 08:56 09:01 Temperature Pulse Rate 91 H 92 H 92 H Respiratory Rate Blood Pressure Blood Pressure [Right] O2 Sat by Pulse 98 99 98 Oximetry O2 Sat by Pulse Oximetry [ Bilateral] 10/11/21 10/11/21 10/11/21 09:06 09:11 09:16 Temperature Pulse Rate 75 83 89 Respiratory Rate Blood Pressure Blood Pressure [Right] O2 Sat by Pulse 99 99 98 Oximetry O2 Sat by Pulse Oximetry [ Bilateral] 10/11/21 10/11/21 10/11/21 09:21 09:26 09:31 Temperature Pulse Rate 80 89 86 Respiratory Rate Blood Pressure Blood Pressure [Right] O2 Sat by Pulse 99 99 99 Oximetry O2 Sat by Pulse Oximetry [ Bilateral] 10/11/21 10/11/21 10/11/21 09:32 09:36 09:41 Temperature Pulse Rate 82 85 94 H Respiratory 18 Rate Blood Pressure Blood Pressure 118/76 [Right] O2 Sat by Pulse 99 99 99 Oximetry O2 Sat by Pulse Oximetry [ Bilateral] 10/11/21 10/11/21 10/11/21 09:46 09:51 10:08 Temperature Pulse Rate 90 92 H 92 H Respiratory Rate Blood Pressure Blood Pressure [Right] O2 Sat by Pulse 99 99 99 Oximetry O2 Sat by Pulse Oximetry [ Bilateral] 10/11/21 10/11/21 10/11/21 10:13 10:18 10:23 Temperature Pulse Rate 83 85 84 Respiratory Rate Blood Pressure Blood Pressure [Right] O2 Sat by Pulse 98 98 98 Oximetry O2 Sat by Pulse Oximetry [ Bilateral] 10/11/21 10/11/21 10/11/21 10:28 10:33 10:34 Temperature Pulse Rate 85 85 88 Respiratory Rate Blood Pressure 124/74 Blood Pressure [Right] O2 Sat by Pulse 98 98 Oximetry O2 Sat by Pulse Oximetry [ Bilateral] 10/11/21 10/11/21 10/11/21 10:38 10:43 10:48 Temperature Pulse Rate 94 H 92 H 81 Respiratory Rate Blood Pressure Blood Pressure [Right] O2 Sat by Pulse 98 99 99 Oximetry O2 Sat by Pulse Oximetry [ Bilateral] 10/11/21 10/11/21 10/11/21 10:52 10:53 10:58 Temperature Pulse Rate 93 H 90 Respiratory Rate Blood Pressure Blood Pressure [Right] O2 Sat by Pulse 99 99 Oximetry O2 Sat by Pulse 99 Oximetry [ Bilateral] 10/11/21 10/11/21 10/11/21 11:03 11:08 11:13 Temperature Pulse Rate 83 87 87 Respiratory Rate Blood Pressure Blood Pressure [Right] O2 Sat by Pulse 99 98 98 Oximetry O2 Sat by Pulse Oximetry [ Bilateral] 10/11/21 10/11/21 10/11/21 11:18 11:23 11:27 Temperature Pulse Rate 86 84 92 H Respiratory Rate Blood Pressure Blood Pressure [Right] O2 Sat by Pulse 98 97 97 Oximetry O2 Sat by Pulse Oximetry [ Bilateral] 10/11/21 10/11/21 10/11/21 11:33 11:37 11:42 Temperature Pulse Rate 83 86 88 Respiratory Rate Blood Pressure Blood Pressure [Right] O2 Sat by Pulse 97 96 96 Oximetry O2 Sat by Pulse Oximetry [ Bilateral] 10/11/21 10/11/21 10/11/21 11:48 11:52 11:57 Temperature Pulse Rate 83 81 80 Respiratory Rate Blood Pressure Blood Pressure [Right] O2 Sat by Pulse 97 98 98 Oximetry O2 Sat by Pulse Oximetry [ Bilateral] 10/11/21 10/11/21 10/11/21 12:03 12:07 12:12 Temperature Pulse Rate 83 79 83 Respiratory Rate Blood Pressure Blood Pressure [Right] O2 Sat by Pulse 98 100 99 Oximetry O2 Sat by Pulse Oximetry [ Bilateral] 10/11/21 10/11/21 10/11/21 12:17 12:22 12:27 Temperature Pulse Rate 82 77 74 Respiratory Rate Blood Pressure Blood Pressure [Right] O2 Sat by Pulse 100 99 99 Oximetry O2 Sat by Pulse Oximetry [ Bilateral] 10/11/21 10/11/21 10/11/21 12:32 12:37 12:38 Temperature Pulse Rate 80 74 93 H Respiratory Rate Blood Pressure Blood Pressure [Right] O2 Sat by Pulse 99 95 94 Oximetry O2 Sat by Pulse Oximetry [ Bilateral] 10/11/21 10/11/21 10/11/21 12:56 13:01 13:06 Temperature Pulse Rate 72 87 81 Respiratory Rate Blood Pressure Blood Pressure [Right] O2 Sat by Pulse 97 98 97 Oximetry O2 Sat by Pulse Oximetry [ Bilateral] 10/11/21 10/11/21 10/11/21 13:11 13:16 13:21 Temperature Pulse Rate 85 84 83 Respiratory Rate Blood Pressure Blood Pressure [Right] O2 Sat by Pulse 98 97 97 Oximetry O2 Sat by Pulse Oximetry [ Bilateral] 10/11/21 10/11/21 10/11/21 13:26 13:31 13:36 Temperature Pulse Rate 82 78 76 Respiratory Rate Blood Pressure Blood Pressure [Right] O2 Sat by Pulse 97 96 97 Oximetry O2 Sat by Pulse Oximetry [ Bilateral] 10/11/21 10/11/21 10/11/21 13:41 13:46 13:51 Temperature Pulse Rate 65 71 76 Respiratory Rate Blood Pressure Blood Pressure [Right] O2 Sat by Pulse 96 97 96 Oximetry O2 Sat by Pulse Oximetry [ Bilateral] 10/11/21 10/11/21 10/11/21 13:56 13:58 14:01 Temperature 97.9 F Pulse Rate 78 80 Respiratory 16 Rate Blood Pressure Blood Pressure [Right] O2 Sat by Pulse 96 96 Oximetry O2 Sat by Pulse Oximetry [ Bilateral] 10/11/21 10/11/21 10/11/21 14:06 14:11 14:16 Temperature Pulse Rate 79 85 79 Respiratory Rate Blood Pressure Blood Pressure [Right] O2 Sat by Pulse 96 96 96 Oximetry O2 Sat by Pulse Oximetry [ Bilateral] 10/11/21 10/11/21 10/11/21 14:21 14:26 14:31 Temperature Pulse Rate 77 73 91 H Respiratory Rate Blood Pressure Blood Pressure [Right] O2 Sat by Pulse 98 97 98 Oximetry O2 Sat by Pulse Oximetry [ Bilateral] 10/11/21 10/11/21 10/11/21 14:36 14:41 14:46 Temperature Pulse Rate 102 H 105 H 85 Respiratory Rate Blood Pressure Blood Pressure [Right] O2 Sat by Pulse 97 98 98 Oximetry O2 Sat by Pulse Oximetry [ Bilateral] 10/11/21 10/11/21 10/11/21 14:51 14:56 15:01 Temperature Pulse Rate 87 104 H 84 Respiratory Rate Blood Pressure Blood Pressure [Right] O2 Sat by Pulse 97 97 99 Oximetry O2 Sat by Pulse Oximetry [ Bilateral] 10/11/21 10/11/21 10/11/21 15:06 15:11 15:16 Temperature Pulse Rate 77 84 87 Respiratory Rate Blood Pressure Blood Pressure [Right] O2 Sat by Pulse 98 97 97 Oximetry O2 Sat by Pulse Oximetry [ Bilateral] 10/11/21 10/11/21 10/11/21 15:18 15:21 15:26 Temperature Pulse Rate 96 H 97 H 88 Respiratory Rate Blood Pressure 128/77 Blood Pressure [Right] O2 Sat by Pulse 98 98 Oximetry O2 Sat by Pulse Oximetry [ Bilateral] 10/11/21 10/11/21 10/11/21 15:31 15:36 15:49 Temperature Pulse Rate 92 H 95 H 80 Respiratory Rate Blood Pressure 127/77 Blood Pressure [Right] O2 Sat by Pulse 99 98 Oximetry O2 Sat by Pulse Oximetry [ Bilateral] 10/11/21 10/11/21 10/11/21 15:50 15:55 16:00 Temperature Pulse Rate 81 87 92 H Respiratory Rate Blood Pressure Blood Pressure [Right] O2 Sat by Pulse 99 98 98 Oximetry O2 Sat by Pulse Oximetry [ Bilateral] 10/11/21 10/11/21 10/11/21 16:05 16:10 16:15 Temperature Pulse Rate 82 84 85 Respiratory Rate Blood Pressure Blood Pressure [Right] O2 Sat by Pulse 97 99 98 Oximetry O2 Sat by Pulse Oximetry [ Bilateral] 10/11/21 10/11/21 10/11/21 16:20 16:24 16:29 Temperature Pulse Rate 86 86 93 H Respiratory Rate Blood Pressure Blood Pressure [Right] O2 Sat by Pulse 99 98 98 Oximetry O2 Sat by Pulse Oximetry [ Bilateral] 10/11/21 10/11/21 10/11/21 16:34 16:39 16:45 Temperature Pulse Rate 80 84 85 Respiratory Rate Blood Pressure Blood Pressure [Right] O2 Sat by Pulse 99 98 99 Oximetry O2 Sat by Pulse Oximetry [ Bilateral] 10/11/21 10/11/21 10/11/21 16:49 16:50 16:55 Temperature Pulse Rate 82 80 81 Respiratory Rate Blood Pressure 118/71 Blood Pressure [Right] O2 Sat by Pulse 99 97 Oximetry O2 Sat by Pulse Oximetry [ Bilateral] 10/11/21 10/11/21 10/11/21 16:59 17:04 17:09 Temperature Pulse Rate 92 H 85 90 Respiratory Rate Blood Pressure Blood Pressure [Right] O2 Sat by Pulse 98 98 98 Oximetry O2 Sat by Pulse Oximetry [ Bilateral] 10/11/21 10/11/21 10/11/21 17:14 17:20 17:24 Temperature Pulse Rate 79 98 H 71 Respiratory Rate Blood Pressure Blood Pressure [Right] O2 Sat by Pulse 99 98 98 Oximetry O2 Sat by Pulse Oximetry [ Bilateral] 10/11/21 10/11/21 10/11/21 17:30 17:35 17:39 Temperature Pulse Rate 85 76 82 Respiratory Rate Blood Pressure Blood Pressure [Right] O2 Sat by Pulse 98 98 97 Oximetry O2 Sat by Pulse Oximetry [ Bilateral] 10/11/21 10/11/21 10/11/21 17:44 17:49 17:50 Temperature Pulse Rate 78 86 87 Respiratory Rate Blood Pressure 105/58 Blood Pressure [Right] O2 Sat by Pulse 98 99 Oximetry O2 Sat by Pulse Oximetry [ Bilateral] 10/11/21 10/11/21 10/11/21 17:54 18:00 18:04 Temperature Pulse Rate 92 H 85 94 H Respiratory Rate Blood Pressure Blood Pressure [Right] O2 Sat by Pulse 98 98 98 Oximetry O2 Sat by Pulse Oximetry [ Bilateral] 10/11/21 18:09 Temperature Pulse Rate 90 Respiratory Rate Blood Pressure Blood Pressure [Right] O2 Sat by Pulse 98 Oximetry O2 Sat by Pulse Oximetry [ Bilateral] - Exam Cardiovascular: Regular rate Lungs: Normal air movement Abdomen: Present: normal appearance Vulva: both: normal Uterus: Present: normal FHR: category 1 Uterine Contraction Monitor Mode: External Cervical Dilatation: 5.5 (Bag felt during exam.) Cervical Effacement Percentage: 70 station: -2 Uterine Contraction Frequency (min): 3-4 minutes Uterine Contraction Duration: 60 secs Uterine Contraction Pattern: Regular Uterine Tone Measurement Phase: Resting Uterine Contraction Intensity: Mild - Labs Labs: Abnormal Labs 10/11/21 09:40 MCH 26 L RDW 16.7 H Laboratory Results - last 24 hr 10/11/21 10/11/21 10/11/21 09:40 09:40 09:40 WBC 9.1 RBC 4.21 Hgb 11.1 Hct 33.7 MCV 80 MCH 26 L MCHC 33 RDW 16.7 H Plt Count 183 Syphilis IgG/IgM Ab Nonreactive Blood Type O POSITIVE Antibody Screen Negative
--- NOTE | 2021-10-11 19:48 | Progress Note ---
Labor Epidural - Labor Epidural Start Time: 19:20 Stop Time: 19:31 Performed by:: EVERETT REAL Procedure: Patient is requesting epidural for labor pain. H&P and labs reviewed. Procedure explained, questions answered, consent obtained. Patient placed in sitting position with monitors applied. Timeout performed immediately before start of procedure. Prep/drape in usual sterile fashion. Skin localized 3 mL 1% lidocaine at L[3]-L[4] interspace. 17-gauge Touhy epidural needle advanced to DAYDAY with saline at [8] cm x 2 attempts. No blood/CSF noted via epidural needle. Epidural catheter advanced to [12] cm. Negative aspiration for blood and CSF via catheter, negative response to test dose 3 ml 1.5% lidocaine w/ Epi. Sterile dressing applied followed by tape reinforcement. Patient tolerated procedure well. No immediate complications noted.
--- NOTE | 2021-10-11 19:48 | Anesthesia Consultation ---
Anesthesia Consult and Med Hx Date of service: 10/11/21 - Airway Anesthetic Teeth Evaluation: Good ROM Head & Neck: Adequate Mental/Hyoid Distance: Adequate Mallampati Class: Class II Intubation Access Assessment: Probably Good - Pulmonary Exam CTA: Yes - Cardiac Exam Cardiac Exam: RRR - Pre-Operative Health Status ASA Pre-Surgery Classification: ASA2 Proposed Anesthetic Plan: Epidural - Pulmonary Hx Smoking: No Hx Asthma: No COPD: No Hx Pneumonia: No - Cardiovascular System Hx Hypertension: No - Central Nervous System Hx Seizures: No Hx Psychiatric Problems: No - Endocrine Hx Renal Disease: No Hx End Stage Renal Disease: No Hx Hypothyroidism: No Hx Hyperthyroidism: No - Hematic Hx Anemia: No Hx Sickle Cell Disease: No - Other Systems Hx Alcohol Use: No Hx Substance Use: No Hx Obesity: Yes
[2021-10-11] MEDS ORDERED: fentaNYL-BUPIV 2 MCG/ML-0.125% 200 MCG/100 ML BAG EPIDURAL SCH (20:00)
--- NOTE | 2021-10-11 20:15 | Event Note ---
Date: 10/11/21 ([facility]) Pt called out after epidural placement and stated that her water had broken. Upon assessment: large amount of clear fluid in bed. Cervical exam: /-2. Pt states that she can still feel some contraction pain on the left side. Assisted RN with repositioning patient to left side in Flying Cowgirl position. Will continue monitor pain in labor and call anesthesia for assessment if needed. Currently category 1 monitor tracing with contractions q 2-3 minutes. Continue to increase Pitocin per protocol. Anticipate .
--- NOTE | 2021-10-11 22:15 | Progress Note ---
Assessment and Plan A: 21 y.o. @ 40.2 wks, active labor. - Patient Problems (1) Postmaturity , 40-42 weeks gestation Current Visit: Yes Status: Acute Plan to address problem: Continue with augmentation with Pitocin per protocol. Anticipate . 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 Patient reports: loss of fluid (SROM clear fluid @ 1999), movement normal Objective - Vital Signs Vital Signs: Vital Signs - 12hr 10/11/21 10/11/21 10/11/21 10:13 10:18 10:23 Temperature Pulse Rate 83 85 84 Respiratory Rate Blood Pressure O2 Sat by Pulse 98 98 98 Oximetry O2 Sat by Pulse Oximetry [ Bilateral] 10/11/21 10/11/21 10/11/21 10:28 10:33 10:34 Temperature Pulse Rate 85 85 88 Respiratory Rate Blood Pressure 124/74 O2 Sat by Pulse 98 98 Oximetry O2 Sat by Pulse Oximetry [ Bilateral] 10/11/21 10/11/21 10/11/21 10:38 10:43 10:48 Temperature Pulse Rate 94 H 92 H 81 Respiratory Rate Blood Pressure O2 Sat by Pulse 98 99 99 Oximetry O2 Sat by Pulse Oximetry [ Bilateral] 10/11/21 10/11/21 10/11/21 10:52 10:53 10:58 Temperature Pulse Rate 93 H 90 Respiratory Rate Blood Pressure O2 Sat by Pulse 99 99 Oximetry O2 Sat by Pulse 99 Oximetry [ Bilateral] 10/11/21 10/11/21 10/11/21 11:03 11:08 11:13 Temperature Pulse Rate 83 87 87 Respiratory Rate Blood Pressure O2 Sat by Pulse 99 98 98 Oximetry O2 Sat by Pulse Oximetry [ Bilateral] 10/11/21 10/11/21 10/11/21 11:18 11:23 11:27 Temperature Pulse Rate 86 84 92 H Respiratory Rate Blood Pressure O2 Sat by Pulse 98 97 97 Oximetry O2 Sat by Pulse Oximetry [ Bilateral] 10/11/21 10/11/21 10/11/21 11:33 11:37 11:42 Temperature Pulse Rate 83 86 88 Respiratory Rate Blood Pressure O2 Sat by Pulse 97 96 96 Oximetry O2 Sat by Pulse Oximetry [ Bilateral] 10/11/21 10/11/21 10/11/21 11:48 11:52 11:57 Temperature Pulse Rate 83 81 80 Respiratory Rate Blood Pressure O2 Sat by Pulse 97 98 98 Oximetry O2 Sat by Pulse Oximetry [ Bilateral] 10/11/21 10/11/21 10/11/21 12:03 12:07 12:12 Temperature Pulse Rate 83 79 83 Respiratory Rate Blood Pressure O2 Sat by Pulse 98 100 99 Oximetry O2 Sat by Pulse Oximetry [ Bilateral] 10/11/21 10/11/21 10/11/21 12:17 12:22 12:27 Temperature Pulse Rate 82 77 74 Respiratory Rate Blood Pressure O2 Sat by Pulse 100 99 99 Oximetry O2 Sat by Pulse Oximetry [ Bilateral] 10/11/21 10/11/21 10/11/21 12:32 12:37 12:38 Temperature Pulse Rate 80 74 93 H Respiratory Rate Blood Pressure O2 Sat by Pulse 99 95 94 Oximetry O2 Sat by Pulse Oximetry [ Bilateral] 10/11/21 10/11/21 10/11/21 12:56 13:01 13:06 Temperature Pulse Rate 72 87 81 Respiratory Rate Blood Pressure O2 Sat by Pulse 97 98 97 Oximetry O2 Sat by Pulse Oximetry [ Bilateral] 10/11/21 10/11/21 10/11/21 13:11 13:16 13:21 Temperature Pulse Rate 85 84 83 Respiratory Rate Blood Pressure O2 Sat by Pulse 98 97 97 Oximetry O2 Sat by Pulse Oximetry [ Bilateral] 10/11/21 10/11/21 10/11/21 13:26 13:31 13:36 Temperature Pulse Rate 82 78 76 Respiratory Rate Blood Pressure O2 Sat by Pulse 97 96 97 Oximetry O2 Sat by Pulse Oximetry [ Bilateral] 10/11/21 10/11/21 10/11/21 13:41 13:46 13:51 Temperature Pulse Rate 65 71 76 Respiratory Rate Blood Pressure O2 Sat by Pulse 96 97 96 Oximetry O2 Sat by Pulse Oximetry [ Bilateral] 10/11/21 10/11/21 10/11/21 13:56 13:58 14:01 Temperature 97.9 F Pulse Rate 78 80 Respiratory 16 Rate Blood Pressure O2 Sat by Pulse 96 96 Oximetry O2 Sat by Pulse Oximetry [ Bilateral] 10/11/21 10/11/21 10/11/21 14:06 14:11 14:16 Temperature Pulse Rate 79 85 79 Respiratory Rate Blood Pressure O2 Sat by Pulse 96 96 96 Oximetry O2 Sat by Pulse Oximetry [ Bilateral] 10/11/21 10/11/21 10/11/21 14:21 14:26 14:31 Temperature Pulse Rate 77 73 91 H Respiratory Rate Blood Pressure O2 Sat by Pulse 98 97 98 Oximetry O2 Sat by Pulse Oximetry [ Bilateral] 10/11/21 10/11/21 10/11/21 14:36 14:41 14:46 Temperature Pulse Rate 102 H 105 H 85 Respiratory Rate Blood Pressure O2 Sat by Pulse 97 98 98 Oximetry O2 Sat by Pulse Oximetry [ Bilateral] 10/11/21 10/11/21 10/11/21 14:51 14:56 15:01 Temperature Pulse Rate 87 104 H 84 Respiratory Rate Blood Pressure O2 Sat by Pulse 97 97 99 Oximetry O2 Sat by Pulse Oximetry [ Bilateral] 10/11/21 10/11/21 10/11/21 15:06 15:11 15:16 Temperature Pulse Rate 77 84 87 Respiratory Rate Blood Pressure O2 Sat by Pulse 98 97 97 Oximetry O2 Sat by Pulse Oximetry [ Bilateral] 10/11/21 10/11/21 10/11/21 15:18 15:21 15:26 Temperature Pulse Rate 96 H 97 H 88 Respiratory Rate Blood Pressure 128/77 O2 Sat by Pulse 98 98 Oximetry O2 Sat by Pulse Oximetry [ Bilateral] 10/11/21 10/11/21 10/11/21 15:31 15:36 15:49 Temperature Pulse Rate 92 H 95 H 80 Respiratory Rate Blood Pressure 127/77 O2 Sat by Pulse 99 98 Oximetry O2 Sat by Pulse Oximetry [ Bilateral] 10/11/21 10/11/21 10/11/21 15:50 15:55 16:00 Temperature Pulse Rate 81 87 92 H Respiratory Rate Blood Pressure O2 Sat by Pulse 99 98 98 Oximetry O2 Sat by Pulse Oximetry [ Bilateral] 10/11/21 10/11/21 10/11/21 16:05 16:10 16:15 Temperature Pulse Rate 82 84 85 Respiratory Rate Blood Pressure O2 Sat by Pulse 97 99 98 Oximetry O2 Sat by Pulse Oximetry [ Bilateral] 10/11/21 10/11/21 10/11/21 16:20 16:24 16:29 Temperature Pulse Rate 86 86 93 H Respiratory Rate Blood Pressure O2 Sat by Pulse 99 98 98 Oximetry O2 Sat by Pulse Oximetry [ Bilateral] 10/11/21 10/11/21 10/11/21 16:34 16:39 16:45 Temperature Pulse Rate 80 84 85 Respiratory Rate Blood Pressure O2 Sat by Pulse 99 98 99 Oximetry O2 Sat by Pulse Oximetry [ Bilateral] 10/11/21 10/11/21 10/11/21 16:49 16:50 16:55 Temperature Pulse Rate 82 80 81 Respiratory Rate Blood Pressure 118/71 O2 Sat by Pulse 99 97 Oximetry O2 Sat by Pulse Oximetry [ Bilateral] 10/11/21 10/11/21 10/11/21 16:59 17:04 17:09 Temperature Pulse Rate 92 H 85 90 Respiratory Rate Blood Pressure O2 Sat by Pulse 98 98 98 Oximetry O2 Sat by Pulse Oximetry [ Bilateral] 10/11/21 10/11/21 10/11/21 17:14 17:20 17:24 Temperature Pulse Rate 79 98 H 71 Respiratory Rate Blood Pressure O2 Sat by Pulse 99 98 98 Oximetry O2 Sat by Pulse Oximetry [ Bilateral] 10/11/21 10/11/21 10/11/21 17:30 17:35 17:39 Temperature Pulse Rate 85 76 82 Respiratory Rate Blood Pressure O2 Sat by Pulse 98 98 97 Oximetry O2 Sat by Pulse Oximetry [ Bilateral] 10/11/21 10/11/21 10/11/21 17:44 17:49 17:50 Temperature Pulse Rate 78 86 87 Respiratory Rate Blood Pressure 105/58 O2 Sat by Pulse 98 99 Oximetry O2 Sat by Pulse Oximetry [ Bilateral] 10/11/21 10/11/21 10/11/21 17:54 18:00 18:04 Temperature Pulse Rate 92 H 85 94 H Respiratory Rate Blood Pressure O2 Sat by Pulse 98 98 98 Oximetry O2 Sat by Pulse Oximetry [ Bilateral] 10/11/21 10/11/21 10/11/21 18:09 18:13 18:15 Temperature 97.6 F Pulse Rate 90 66 Respiratory 16 Rate Blood Pressure O2 Sat by Pulse 98 98 Oximetry O2 Sat by Pulse Oximetry [ Bilateral] 10/11/21 10/11/21 10/11/21 18:19 18:24 18:30 Temperature Pulse Rate 77 82 82 Respiratory Rate Blood Pressure O2 Sat by Pulse 96 98 97 Oximetry O2 Sat by Pulse Oximetry [ Bilateral] 10/11/21 10/11/21 10/11/21 18:34 18:39 18:45 Temperature Pulse Rate 80 91 H 82 Respiratory Rate Blood Pressure O2 Sat by Pulse 98 99 99 Oximetry O2 Sat by Pulse Oximetry [ Bilateral] 10/11/21 10/11/21 10/11/21 18:49 18:50 18:54 Temperature Pulse Rate 83 75 79 Respiratory Rate Blood Pressure 114/61 O2 Sat by Pulse 100 97 Oximetry O2 Sat by Pulse Oximetry [ Bilateral] 10/11/21 10/11/21 10/11/21 18:59 19:04 19:09 Temperature Pulse Rate 82 92 H 78 Respiratory Rate Blood Pressure O2 Sat by Pulse 99 99 98 Oximetry O2 Sat by Pulse Oximetry [ Bilateral] 10/11/21 10/11/21 10/11/21 19:14 19:19 19:24 Temperature Pulse Rate 83 88 78 Respiratory Rate Blood Pressure O2 Sat by Pulse 98 100 98 Oximetry O2 Sat by Pulse Oximetry [ Bilateral] 10/11/21 10/11/21 10/11/21 19:27 19:29 19:31 Temperature Pulse Rate 63 85 66 Respiratory Rate Blood Pressure 120/82 O2 Sat by Pulse 94 98 Oximetry O2 Sat by Pulse Oximetry [ Bilateral] 10/11/21 10/11/21 10/11/21 19:33 19:35 19:37 Temperature Pulse Rate 69 75 77 Respiratory Rate Blood Pressure 120/88 118/77 O2 Sat by Pulse 97 Oximetry O2 Sat by Pulse Oximetry [ Bilateral] 10/11/21 10/11/21 10/11/21 19:39 19:41 19:43 Temperature Pulse Rate 82 78 77 Respiratory Rate Blood Pressure 108/73 109/74 114/74 O2 Sat by Pulse 99 Oximetry O2 Sat by Pulse Oximetry [ Bilateral] 10/11/21 10/11/21 10/11/21 19:44 19:45 19:47 Temperature Pulse Rate 81 71 77 Respiratory Rate Blood Pressure 102/66 106/69 O2 Sat by Pulse 98 Oximetry O2 Sat by Pulse Oximetry [ Bilateral] 10/11/21 10/11/21 10/11/21 19:49 19:51 19:53 Temperature Pulse Rate 77 75 89 Respiratory Rate Blood Pressure 102/69 93/55 104/64 O2 Sat by Pulse 98 Oximetry O2 Sat by Pulse Oximetry [ Bilateral] 10/11/21 10/11/21 10/11/21 19:54 19:55 19:57 Temperature Pulse Rate 87 77 77 Respiratory Rate Blood Pressure 110/72 115/68 O2 Sat by Pulse 99 Oximetry O2 Sat by Pulse Oximetry [ Bilateral] 10/11/21 10/11/21 10/11/21 19:59 20:01 20:03 Temperature Pulse Rate 78 79 73 Respiratory Rate Blood Pressure 109/64 126/76 122/78 O2 Sat by Pulse 99 Oximetry O2 Sat by Pulse Oximetry [ Bilateral] 10/11/21 10/11/21 10/11/21 20:04 20:05 20:07 Temperature Pulse Rate 77 77 90 Respiratory Rate Blood Pressure 121/76 122/63 O2 Sat by Pulse 99 Oximetry O2 Sat by Pulse Oximetry [ Bilateral] 10/11/21 10/11/21 10/11/21 20:09 20:11 20:13 Temperature Pulse Rate 79 81 85 Respiratory Rate Blood Pressure 100/65 102/58 95/57 O2 Sat by Pulse 97 Oximetry O2 Sat by Pulse Oximetry [ Bilateral] 10/11/21 10/11/21 10/11/21 20:14 20:16 20:17 Temperature Pulse Rate 76 76 82 Respiratory Rate Blood Pressure 102/57 103/59 O2 Sat by Pulse 97 Oximetry O2 Sat by Pulse Oximetry [ Bilateral] 10/11/21 10/11/21 10/11/21 20:19 20:21 20:23 Temperature Pulse Rate 79 85 75 Respiratory Rate Blood Pressure 97/54 108/56 97/55 O2 Sat by Pulse 97 Oximetry O2 Sat by Pulse Oximetry [ Bilateral] 10/11/21 10/11/21 10/11/21 20:24 20:25 20:27 Temperature Pulse Rate 74 73 77 Respiratory Rate Blood Pressure 100/55 97/54 O2 Sat by Pulse 96 Oximetry O2 Sat by Pulse Oximetry [ Bilateral] 10/11/21 10/11/21 10/11/21 20:29 20:31 20:33 Temperature Pulse Rate 81 77 75 Respiratory Rate Blood Pressure 98/57 96/60 99/58 O2 Sat by Pulse 97 Oximetry O2 Sat by Pulse Oximetry [ Bilateral] 10/11/21 10/11/21 10/11/21 20:34 20:35 20:37 Temperature Pulse Rate 71 79 Respiratory Rate Blood Pressure 98/54 102/61 O2 Sat by Pulse 95 Oximetry O2 Sat by Pulse Oximetry [ Bilateral] 10/11/21 10/11/21 10/11/21 20:39 20:41 20:43 Temperature Pulse Rate 80 83 76 Respiratory Rate Blood Pressure 101/56 109/67 98/59 O2 Sat by Pulse 96 Oximetry O2 Sat by Pulse Oximetry [ Bilateral] 10/11/21 10/11/21 10/11/21 20:44 20:45 20:47 Temperature Pulse Rate 77 72 76 Respiratory Rate Blood Pressure 97/59 96/58 O2 Sat by Pulse 97 Oximetry O2 Sat by Pulse Oximetry [ Bilateral] 10/11/21 10/11/21 10/11/21 20:49 20:51 20:53 Temperature Pulse Rate 76 82 80 Respiratory Rate Blood Pressure 97/58 102/61 93/57 O2 Sat by Pulse 96 Oximetry O2 Sat by Pulse Oximetry [ Bilateral] 10/11/21 10/11/21 10/11/21 20:54 20:55 20:57 Temperature Pulse Rate 84 81 76 Respiratory Rate Blood Pressure 96/58 102/62 O2 Sat by Pulse 97 Oximetry O2 Sat by Pulse Oximetry [ Bilateral] 10/11/21 10/11/21 10/11/21 20:59 21:01 21:03 Temperature Pulse Rate 79 68 74 Respiratory Rate Blood Pressure 100/56 102/59 92/60 O2 Sat by Pulse 98 Oximetry O2 Sat by Pulse Oximetry [ Bilateral] 10/11/21 10/11/21 10/11/21 21:04 21:05 21:07 Temperature Pulse Rate 75 74 71 Respiratory Rate Blood Pressure 95/61 95/61 O2 Sat by Pulse 98 Oximetry O2 Sat by Pulse Oximetry [ Bilateral] 10/11/21 10/11/21 10/11/21 21:09 21:11 21:13 Temperature Pulse Rate 81 75 74 Respiratory Rate Blood Pressure 98/57 95/56 95/55 O2 Sat by Pulse 98 Oximetry O2 Sat by Pulse Oximetry [ Bilateral] 10/11/21 10/11/21 10/11/21 21:14 21:15 21:17 Temperature Pulse Rate 86 71 82 Respiratory Rate Blood Pressure 101/52 94/51 O2 Sat by Pulse 99 Oximetry O2 Sat by Pulse Oximetry [ Bilateral] 10/11/21 10/11/21 10/11/21 21:19 21:24 21:28 Temperature Pulse Rate 85 66 75 Respiratory Rate Blood Pressure 88/56 O2 Sat by Pulse 99 98 Oximetry O2 Sat by Pulse Oximetry [ Bilateral] 10/11/21 10/11/21 10/11/21 21:29 21:32 21:33 Temperature Pulse Rate 79 77 66 Respiratory Rate Blood Pressure 84/60 87/55 92/53 O2 Sat by Pulse 99 Oximetry O2 Sat by Pulse Oximetry [ Bilateral] 10/11/21 10/11/21 10/11/21 21:34 21:35 21:37 Temperature Pulse Rate 77 66 68 Respiratory Rate Blood Pressure 95/51 101/53 O2 Sat by Pulse 98 Oximetry O2 Sat by Pulse Oximetry [ Bilateral] 10/11/21 10/11/21 10/11/21 21:39 21:45 21:50 Temperature Pulse Rate 72 73 Respiratory Rate Blood Pressure 100/58 O2 Sat by Pulse 98 92 99 Oximetry O2 Sat by Pulse Oximetry [ Bilateral] 10/11/21 10/11/21 10/11/21 21:55 22:00 22:05 Temperature Pulse Rate 70 85 76 Respiratory Rate Blood Pressure O2 Sat by Pulse 99 99 99 Oximetry O2 Sat by Pulse Oximetry [ Bilateral] - Exam Narrative Exam: Pt repositioned to the throne position. Rupture of forebag. Fluid continues to be clear. Cardiovascular: Regular rate Lungs: Normal air movement Abdomen: Present: normal appearance, soft Vulva: both: normal FHR: category 1 Uterine Contraction Monitor Mode: External Cervical Dilatation: 9 (Rupture of forebag.) Cervical Effacement Percentage: 100 station: 0 Uterine Contraction Frequency (min): 2 Uterine Contraction Pattern: Regular Uterine Tone Measurement Phase: Resting Uterine Contraction Intensity: Moderate - Labs Labs: Abnormal Labs 10/11/21 09:40 MCH 26 L RDW 16.7 H Laboratory Results - last 24 hr 10/11/21 10/11/21 10/11/21 09:40 09:40 09:40 WBC 9.1 RBC 4.21 Hgb 11.1 Hct 33.7 MCV 80 MCH 26 L MCHC 33 RDW 16.7 H Plt Count 183 Syphilis IgG/IgM Ab Nonreactive Blood Type O POSITIVE Antibody Screen Negative
--- NOTE | 2021-10-11 23:17 | Procedure Note ---
OB Delivery Note - Delivery Date of Delivery: 10/11/21 Bindery Assistant: CHITO NORTH Estimated blood loss: other (400 ml) - Vaginal Delivery presentation: vertex Delivery position: OA Intrapartum events: none Delivery induction: none Delivery augmentation: rupture of membranes, pitocin Delivery monitor: external FHT, external uterine Route of delivery: Delivery placenta: spontaneous Delivery cord: 3 umbilical vessels Episiotomy: none Delivery laceration: none Anesthesia: epidural Delivery comments: of viable male . Infant to mothers abdomen for skin to skin. Cord clamped after cessation of pulse. Cut by FOC. handed to warmer for evaluation. RT at bedside suctioning infant. Infant doing well after suctioning of large amount of amniotic fluid. Spontaneous delivery of placenta intact, complete, 3 vessels noted. Perineum and vagina inspected, no laceration noted. Fundus firm, normal moderate amount of bleeding noted. Infant weight 8-10. Apgars 8,9. OBL 400 ml. Sponges and instruments counted with RN X2 and correct X2. and mother left in stable condition in care of RN. - A at 1 minute: 8 at 5 minutes: 9 Infant Gender: Male ("Jayy", 8-10)
[2021-10-11] MEDS ORDERED: WITCH HAZEL/ GLYCERIN PAD TP PRN (23:19)
[2021-10-11] MEDS ORDERED: diphenhydrAMINE 25 MG CAP PO PRN (23:19)
[2021-10-11] MEDS ORDERED: oxyCODONE /ACETAMINOPHEN 5-325MG TAB PO PRN (23:19)
[2021-10-11] MEDS ORDERED: BENZOCAINE/MENTHOL 20/0.5% TOP SPRAY 56 GM TP PRN (23:19)
[2021-10-11] MEDS ORDERED: miSOPROStol 100 MCG TAB PR PRN (23:19)
[2021-10-11] MEDS ORDERED: PROMETHAZINE 25 MG RECT SUPP PR PRN (23:19)
[2021-10-11] MEDS ORDERED: MAGNESIUM HYDROXIDE (MOM) ORAL LIQD UDC PO PRN (23:19)
[2021-10-11] MEDS ORDERED: HYDROCORTISONE 25 MG RECTAL SUPP PR PRN (23:19)
[2021-10-11] MEDS ORDERED: LANOLIN/ZINC/DIMETHICONE (LANSINOH) 7 GM TP PRN (23:19)
[2021-10-11] MEDS ORDERED: IBUPROFEN 800 MG TAB PO SCH (23:45)
[2021-10-12] MEDS ORDERED: TETANUS,DIPH,PERTUSS(ACELL) VACCINE 0.5 ML SYRINGE IM ONE (06:00)
--- NOTE | 2021-10-12 08:51 | Post Anesthesia Evaluation ---
- Post Anesthesia Evaluation Patient Participated: Yes Airway Patent: Yes Stable Respiratory Function: Yes Nausea/Vomiting: No Temp > 96.8F: Yes Pain Manageable: Yes Adequeate Hydration: Yes Anesthesia Complications: No Block Receding Appropriately: Yes Patient on Ventilator: No
[2021-10-12] MEDS ORDERED: DOCUSATE SODIUM 100 MG CAP PO SCH (10:00)
[2021-10-12] MEDS ORDERED: PRENATAL VIT27-FE FUMARATE-FOLIC ACID VIT TAB PO SCH (10:00)
[2021-10-12] MEDS ORDERED: valACYclovir 500 MG TAB PO SCH (10:00)
[2021-10-12 10:52] LABS: Hematocrit 31.4 % (30.3-42.9); Hemoglobin 10.4 gm/dl (10.1-14.3)
--- NOTE | 2021-10-12 14:47 | Progress Note ---
Assessment and Plan Pt reports ambulating, voiding, and eating without difficulty. VSSAF and post delivery H&H WNL. POC d/w pt. Questions encouraged and addressed. - Patient Problems (1) (normal spontaneous vaginal delivery) Current Visit: Yes Status: Acute Plan to address problem: continue pathway anticipate stable discharge home tomorrow Subjective - Subjective Date of service: 10/12/21 Principal diagnosis: ppd#1 s/p Patient reports: appetite normal, voiding normally, pain well controlled, ambulating normally : doing well Objective - Vital Signs Latest vital signs: Vital Signs Temp Pulse Resp BP BP Pulse Ox Pulse Ox 10/12/21 11:23 98.3 F 94 H 16 109/56 96 10/12/21 10:32 98 10/12/21 08:36 98.1 F 94 H 20 107/71 99 10/12/21 08:00 98 10/12/21 05:30 98.8 F 84 18 112/64 95 10/12/21 02:45 98.1 F 98 H 18 113/72 98 98 10/12/21 00:41 94 H 115/81 10/12/21 00:11 82 118/74 10/11/21 23:41 79 115/79 10/11/21 23:11 88 114/70 10/11/21 23:05 96 H 100 10/11/21 23:00 88 99 10/11/21 22:55 97 H 100 10/11/21 22:50 89 99 10/11/21 22:45 77 99 10/11/21 22:41 75 117/78 10/11/21 22:40 75 99 10/11/21 22:35 89 99 10/11/21 22:30 79 99 10/11/21 22:25 74 99 10/11/21 22:20 80 99 10/11/21 22:15 72 98 10/11/21 22:11 76 104/65 10/11/21 22:10 72 99 10/11/21 22:05 76 99 10/11/21 22:00 85 99 10/11/21 21:55 70 99 10/11/21 21:50 73 99 10/11/21 21:45 92 10/11/21 21:39 72 100/58 98 10/11/21 21:37 68 101/53 10/11/21 21:35 66 95/51 10/11/21 21:34 77 98 10/11/21 21:33 66 92/53 10/11/21 21:32 77 87/55 10/11/21 21:29 79 84/60 99 10/11/21 21:28 75 88/56 10/11/21 21:24 66 98 10/11/21 21:19 85 99 10/11/21 21:17 82 94/51 10/11/21 21:15 71 101/52 10/11/21 21:14 86 99 10/11/21 21:13 74 95/55 10/11/21 21:11 75 95/56 10/11/21 21:09 81 98/57 98 10/11/21 21:07 71 95/61 10/11/21 21:05 74 95/61 10/11/21 21:04 75 98 10/11/21 21:03 74 92/60 10/11/21 21:01 68 102/59 10/11/21 20:59 79 100/56 98 10/11/21 20:57 76 102/62 10/11/21 20:55 81 96/58 10/11/21 20:54 84 97 10/11/21 20:53 80 93/57 10/11/21 20:51 82 102/61 10/11/21 20:49 76 97/58 96 10/11/21 20:47 76 96/58 10/11/21 20:45 72 97/59 10/11/21 20:44 77 97 10/11/21 20:43 76 98/59 10/11/21 20:41 83 109/67 10/11/21 20:39 80 101/56 96 10/11/21 20:37 79 102/61 10/11/21 20:35 98/54 10/11/21 20:34 71 95 10/11/21 20:33 75 99/58 10/11/21 20:31 77 96/60 10/11/21 20:29 81 98/57 97 10/11/21 20:27 77 97/54 10/11/21 20:25 73 100/55 10/11/21 20:24 74 96 10/11/21 20:23 75 97/55 10/11/21 20:21 85 108/56 10/11/21 20:19 79 97/54 97 10/11/21 20:17 82 103/59 10/11/21 20:16 76 102/57 10/11/21 20:14 76 97 10/11/21 20:13 85 95/57 10/11/21 20:11 81 102/58 10/11/21 20:09 79 100/65 97 10/11/21 20:07 90 122/63 10/11/21 20:05 77 121/76 10/11/21 20:04 77 99 10/11/21 20:03 73 122/78 10/11/21 20:01 79 126/76 10/11/21 19:59 78 109/64 99 10/11/21 19:57 77 115/68 10/11/21 19:55 77 110/72 10/11/21 19:54 87 99 10/11/21 19:53 89 104/64 10/11/21 19:51 75 93/55 10/11/21 19:49 77 102/69 98 10/11/21 19:47 77 106/69 10/11/21 19:45 71 102/66 10/11/21 19:44 81 98 10/11/21 19:43 77 114/74 10/11/21 19:41 78 109/74 10/11/21 19:39 82 108/73 99 10/11/21 19:37 77 118/77 10/11/21 19:35 75 97 10/11/21 19:33 69 120/88 10/11/21 19:31 66 120/82 10/11/21 19:29 85 98 10/11/21 19:27 63 94 10/11/21 19:24 78 98 10/11/21 19:19 88 100 10/11/21 19:14 83 98 10/11/21 19:09 78 98 10/11/21 19:04 92 H 99 10/11/21 18:59 82 99 10/11/21 18:54 79 97 10/11/21 18:50 75 114/61 10/11/21 18:49 83 100 10/11/21 18:45 82 99 10/11/21 18:39 91 H 99 10/11/21 18:34 80 98 10/11/21 18:30 82 97 10/11/21 18:24 82 98 10/11/21 18:19 77 96 10/11/21 18:15 66 98 10/11/21 18:13 97.6 F 16 10/11/21 18:09 90 98 10/11/21 18:04 94 H 98 10/11/21 18:00 85 98 10/11/21 17:54 92 H 98 10/11/21 17:50 87 105/58 10/11/21 17:49 86 99 10/11/21 17:44 78 98 10/11/21 17:39 82 97 10/11/21 17:35 76 98 10/11/21 17:30 85 98 10/11/21 17:24 71 98 10/11/21 17:20 98 H 98 10/11/21 17:14 79 99 10/11/21 17:09 90 98 10/11/21 17:04 85 98 10/11/21 16:59 92 H 98 10/11/21 16:55 81 97 10/11/21 16:50 80 99 10/11/21 16:49 82 118/71 10/11/21 16:45 85 99 10/11/21 16:39 84 98 10/11/21 16:34 80 99 10/11/21 16:29 93 H 98 10/11/21 16:24 86 98 10/11/21 16:20 86 99 10/11/21 16:15 85 98 10/11/21 16:10 84 99 10/11/21 16:05 82 97 10/11/21 16:00 92 H 98 10/11/21 15:55 87 98 10/11/21 15:50 81 99 10/11/21 15:49 80 127/77 10/11/21 15:36 95 H 98 10/11/21 15:31 92 H 99 10/11/21 15:26 88 98 10/11/21 15:21 97 H 98 10/11/21 15:18 96 H 128/77 10/11/21 15:16 87 97 10/11/21 15:11 84 97 10/11/21 15:06 77 98 10/11/21 15:01 84 99 10/11/21 14:56 104 H 97 10/11/21 14:51 87 97 10/11/21 14:46 85 98 Intake and Output 10/11/21 10/12/21 10/12/21 23:59 07:59 15:59 Intake Total 8.2 480 Output Total 400 Balance 8.2 -400 480 Intake: IV 8.2 PITOCin/NS 30 UNIT/500ML 8.2 30 units In 500 ml @ 4 mls/hr IV TITR CLAUDIA Rx#: [id number] Oral 480 Output: Urine 400 Indwelling Catheter 400 Other: Total, Intake Amount 360 Total, Output Amount 400 # Voids Void 1 Estimated Blood Loss 400 - Exam Breasts: Present: normal Cardiovascular: Present: Regular rate Lungs: Present: Normal air movement Abdomen: Present: normal appearance, soft. Absent: distention, tenderness, guarding Vulva: both: normal Uterus: Present: normal, firm, fundal height below umbilicus Extremities: Present: normal
--- NOTE | 2021-10-13 09:24 | Discharge Summary ---
Providers - Providers Date of Admission: 10/11/21 08:18 Date of discharge: 10/13/21 (pt desires discharge home) Attending physician: ARGELIA RAMOS 10/11/21 23:20 Consult to Handbag Stitcher [CONS] Routine Reason For Exam: assistance with , SNS Primary care physician: ARGELIA RAMOS Hospitalization Reason for admission: active labor Delivery: Episiotomy: none Laceration: none Other procedures: none complications: none Discharge diagnosis: IUP at term delivered baby: male Condition at discharge: Good Disposition: 01 HOME / SELF CARE / HOMELESS - Discharge Diagnoses (1) (normal spontaneous vaginal delivery) Status: Acute Plan - Discharge Medications Prescriptions: Lidocain2.5%/Prilocai2.5% [Emla] 1 applic TP ONCE #1 tube Ibuprofen [Motrin] 800 mg PO Q8HR PRN #20 tablet PRN Reason: Pain, Moderate (4-6) - Provider Discharge Summary Activity: routine, no sex for 6 weeks, no heavy lifting 4 weeks, no strenuous exercise Diet: routine Instructions: routine Additional instructions: [] Smoking cessation referral if applicable(refer to patient education folder for contact #) [] Refer to [facility]'s [facility] Booklet Call your doctor immediately for: * Fever > 100.5 * Heavy vaginal bleeding ( >1 pad per hour) * Severe persistent headache * Shortness of breath * Reddened, hot, painful area to leg or breast Congratulations! Please call [phone] and schedule your visit in 3 weeks! Please also call and schedule your elective circumcision in 1 week, if desired. Bring your prescription with you to your appointment. Do not apply the medication before the appointment. Thank you! - Follow up plan Follow up: ARGELIA RAMOS MD [Primary Care Provider] - 7 Days
[2021-10-13 13:35] VITALS: BP 109/73
== END 2021-10-13 13:30 | disposition home or self-care (01) | DRG 774 ==
LOC: TRG 07:42 → APU 07:55 → TRG 08:39 → LD 10:10 → OB 10-12 02:55
PROVIDERS: ADMIT Obstetrics & Gynecology; ATTEND Obstetrics & Gynecology
PROC: 10E0XZZ Delivery of Products of Conception, External Approach (ICD-10-PCS; principal; 2021-10-11)
PROC: 3E0R3BZ Introduction of Anesthetic Agent into Spinal Canal, Percutaneous Approach (ICD-10-PCS; 2021-10-11)
PROC: 00HU33Z Insertion of Infusion Device into Spinal Canal, Percutaneous Approach (ICD-10-PCS; 2021-10-11)
PROC: 3E0234Z Introduction of Serum, Toxoid and Vaccine into Muscle, Percutaneous Approach (ICD-10-PCS; 2021-10-12)
DX: O36.8130 Decreased fetal movements, third trimester, not applicable or unspecified (principal); O98.52 Other viral diseases complicating childbirth; Z37.0 Single live birth; O48.0 Post-term pregnancy; B00.9 Herpesviral infection, unspecified; O99.214 Obesity complicating childbirth; Z3A.40 40 weeks gestation of pregnancy; Z82.49 Family history of ischemic heart disease and other diseases of the circulatory system; Z23 Encounter for immunization
CPT/HCPCS: 36415; 59025; 76705; 76815; 76819; 80053; 81001; 82565; 82570; 83615; 84156; 84450; 84460; 84550; 85014; 85018; 85025; 85027; 85610; 85730; 86592; 86850; 86900; 86901; G0378; J3490; J2590; J7120; U0003